=== PATIENT | female | born 1940 | race African-American/Black ===

== ENCOUNTER 2016-08-01 16:16 | Observation (INO) | payer MEDICARE, OTHER ==
[2016-08-01 20:05] LABS: APPEARANCE,URINE CLEAR; BILIRUBIN,URINE NEGATIVE (NEGATIVE); GLUCOSE, URINE NEGATIVE (NEGATIVE); KETONES,URINE NEGATIVE (NEGATIVE); LEUKOCYTE ESTERASE,URINE NEGATIVE (NEGATIVE); NITRITE,URINE NEGATIVE (NEGATIVE); PROTEIN,URINE NEGATIVE (NEGATIVE); URINE SPECIFIC GRAVITY 1.032; UROBILINOGEN,URINE NEGATIVE mg/dL (<2.0)
[2016-08-01 22:47] LABS: ABSOLUTE BASOPHILS # (AUTO) 0.1 10^3/uL (0.0-0.2); ABSOLUTE EOSINOPHILS # (AUTO) 0.4 10^3/uL (0.0-0.6); ABSOLUTE LYMPHOCYTES (AUTO) 3.5 10^3/uL (0.5-4.7); ABSOLUTE NEUT (AUTO) 5.8 10^3/uL (1.7-8.2); BASOPHILS % (AUTO) 1.2 % (0-2); EOSINOPHILS % (AUTO) 3.4 % (0-6); HEMATOCRIT 37.3 % (36.0-47.0); HEMOGLOBIN 12.7 g/dL (12.0-15.5); HGB HCT DIFFERENCE 0.8; LYMPHOCYTES % (AUTO) 32.5 % (13-45); MEAN CORPUSCULAR HEMOGLOBIN 32.2 pg (27.0-33.4); MEAN CORPUSCULAR HGB CONC 34.1 g/dL (32.0-36.0); MEAN CORPUSCULAR VOLUME 95 fl (80-97); MONOCYTES % (AUTO) 9.7 % (3-13); RED BLOOD COUNT 3.94 10^6/uL (3.72-5.28); RED CELL DISTRIBUTION WIDTH 13.5 % (11.5-14.0); SEGMENTED NEUTROPHILS % (AUTO) 53.2 % (42-78); WHITE BLOOD COUNT 10.8 10^3/uL (4.0-10.5)
[2016-08-01 23:03] LABS: ALANINE AMINOTRANSFERASE 29 U/L (9-52); ALBUMIN 4.7 g/dL (3.5-5.0); ALKALINE PHOSPHATASE 76 U/L (38-126); ANION GAP 14 (5-19); ASPARTATE AMINO TRANSFERASE 31 U/L (14-36); BILIRUBIN,DIRECT 0.2 mg/dL (0.0-0.4); BILIRUBIN,TOTAL 0.5 mg/dL (0.2-1.3); BLOOD UREA NITROGEN 21 mg/dL (7-20); CALCIUM 10.5 mg/dL (8.4-10.2); CARBON DIOXIDE 29 mmol/L (22-30); CHLORIDE 101 mmol/L (98-107); CREATININE RESULT 0.97 mg/dL (0.52-1.25); GLUCOSE 105 mg/dL (75-110); POTASSIUM 3.3 mmol/L (3.6-5.0); SODIUM 143.7 mmol/L (137-145); TOTAL PROTEIN 7.2 g/dL (6.3-8.2)
[2016-08-01] MEDS ORDERED: (PENDING PHARMACY ID) (Clonazepam [Klonopin] 0.5 MG) PO PRN (23:26)
[2016-08-01] MEDS ORDERED: CLONAZEPAM 1 MG TABLET PO PRN (23:46)
[2016-08-02] MEDS ORDERED: ACETAMINOPHEN 325 MG TABLET PO PRN (00:15)
[2016-08-02] MEDS: LANSOPRAZOLE 30 MG TAB.RAP.DR PO SCH (06:58)
[2016-08-02] MEDS ORDERED: DONEPEZIL HCL PO SCH ×2 (08:00→10:00)
[2016-08-02] MEDS ORDERED: [UNRECOGNIZED DRUG - OTHER] PO SCH ×2 (08:00→10:00)
[2016-08-02] MEDS ORDERED: MEMANTINE HCL PO SCH ×2 (08:00→10:00)
[2016-08-02] MEDS ORDERED: AMLODIPINE PO SCH (10:00)
[2016-08-02] MEDS ORDERED: (PENDING PHARMACY ID) (Rosuvastatin Calcium [Crestor 5 Mg Tablet] 5 MG) PO SCH (10:00)
[2016-08-02] MEDS ORDERED: FOLIC ACID 1 MG TABLET PO SCH (10:00)
[2016-08-02] MEDS ORDERED: [UNRECOGNIZED DRUG - OTHER] PO SCH (10:00)
[2016-08-02] MEDS ORDERED: CLOPIDOGREL BISULFATE 75 MG TABLET PO SCH (10:00)
[2016-08-02] MEDS ORDERED: VALSARTAN 160 MG TABLET PO SCH (10:00)
[2016-08-02] MEDS ORDERED: VALSARTAN PO SCH (10:00)
[2016-08-02] MEDS ORDERED: SITAGLIPTIN PHOSPHATE 50 MG TABLET PO SCH (10:00)
[2016-08-02] MEDS ORDERED: HCTHIAZID PO SCH (10:00)
[2016-08-02] MEDS ORDERED: HYDROCHLOROTHIAZIDE 25 MG TABLET PO SCH (10:00)
[2016-08-02] MEDS ORDERED: ENOXAPARIN SODIUM INJ 40 MG/0.4 ML DISP.SYRIN SUBCUT SCH (10:00)
[2016-08-02] MEDS ORDERED: (PENDING PHARMACY ID) (Linagliptin [Tradjenta] 5 MG) PO SCH (10:00)
[2016-08-02] MEDS ORDERED: (PENDING PHARMACY ID) (Calcium Carbonate/Vitamin D3 [Calcium 500-Vit D3 200 Caplet] 1 TAB) PO SCH (10:00)
[2016-08-02] MEDS ORDERED: AMLODIPINE BESYLATE 10 MG TABLET PO SCH (10:00)
[2016-08-02] MEDS ORDERED: MEMANTINE HCL 10 MG TABLET PO SCH (10:00)
[2016-08-02] MEDS: PAROXETINE HCL 20 MG TABLET PO SCH ×2 (10:36→17:04)
[2016-08-02] MEDS: CALCIUM CARBONATE 250 MG/VITAMIN D3 125 UNIT TABLET PO SCH ×2 (10:36→17:04)
[2016-08-02 19:19] LABS: ARTERIAL BLOOD BASE EXCESS 6.2 mmol/L; ARTERIAL BLOOD O2 SATURATION 96.4 % (94-98)
--- NOTE | 2016-08-02 21:22 | PDOC H&P ---
History of Present Illness Admission Date/PCP: 08/01/16 17:35 GILBERTO HARTLEY MD History of Present Illness: SALINA BALES is a 75 year old female she came to the office because of shortness of breath and gait abnormality. outpatient CTA chest was done, it was negative for pulmonary embolus, infiltrate, consolidation or mass. Her gait was very unsteady and I was concerned that she may have a stroke ,patient was admitted directly from the office into the hospital for evaluation and evaluation of her symptoms. MRI of the head was done, it was negative for any acute stroke, there was no cerebellar lesion. Past Medical History Cardiac Medical History: Reports: Hypertension Pulmonary Medical History: Reports: Chronic Obstructive Pulmonary Disease (COPD) GI Medical History: Reports: Gastroesophageal Reflux Disease Past Surgical History Past Surgical History: Reports: Tonsillectomy - T&A Social History Smoking Status: Never Smoker Frequency of Alcohol Use: Rare Hx Recreational Drug Use: No Drugs: None Hx Prescription Drug Abuse: No Family History Family History: Reviewed & Not Pertinent Parental Family History Reviewed: Yes Children Family History Reviewed: Yes Sibling(s) Family History Reviewed.: Yes Medication/Allergy Home Medications: Amlodipine/Valsartan/Hcthiazid [Exforge Hct 10-320-25 mg Tab] 1 tab PO DAILY Calcium Carbonate/Vitamin D3 [Calcium 500-Vit D3 200 Caplet] 1 tab PO BID Clonazepam [Klonopin] 0.5 mg PO DAILYP PRN 08/01/16 Clopidogrel Bisulfate [Plavix 75 mg Tablet] 75 mg PO DAILY 08/01/16 Folic Acid [Folvite 1 mg Tablet] 1 mg PO DAILY 08/01/16 Linagliptin [Tradjenta] 5 mg PO DAILY 08/01/16 Memantine HCl/Donepezil HCl [Namzaric 14 mg-10 mg Capsule] 1 cap PO DAILY Pantoprazole Sodium [Protonix] 40 mg PO DAILY 08/01/16 Paroxetine HCl [Paxil 20 mg Tablet] 20 mg PO BID 08/01/16 Rosuvastatin Calcium [Crestor 5 mg Tablet] 5 mg PO DAILY 08/01/16 Zolpidem Tartrate [Ambien 5 mg Tablet] 5 mg PO QHS 08/01/16 Allergies/Adverse Reactions: Penicillins Allergy (Unknown, Verified 07/19/13 15:49) Review of Systems Constitutional: ABSENT: chills, fever(s), headache(s), weight gain, weight loss Eyes: ABSENT: visual disturbances Ears: ABSENT: hearing changes Cardiovascular: ABSENT: chest pain, dyspnea on exertion, edema, orthropnea, palpitations Respiratory: PRESENT: dyspnea Gastrointestinal: ABSENT: abdominal pain, constipation, diarrhea, hematemesis, hematochezia, nausea, vomiting Genitourinary: ABSENT: dysuria, hematuria Musculoskeletal: ABSENT: joint swelling Integumentary: ABSENT: rash, wounds Neurological: PRESENT: abnormal gait Psychiatric: ABSENT: anxiety, depression, homidical ideation, suicidal ideation Endocrine: ABSENT: cold intolerance, heat intolerance, menstrual abnormalities, polydipsia, polyuria Hematologic/Lymphatic: ABSENT: easy bleeding, easy bruising, lymphadenopathy Physical Exam Vital Signs: Temp Pulse Resp BP Pulse Ox 98.7 F 79 16 151/60 H 93 08/02/16 20:15 08/02/16 20:15 08/02/16 20:15 08/02/16 20:15 08/02/16 20:15 Intake & Output 08/01/16 08/02/16 08/03/16 06:59 06:59 06:59 Intake Total 400 605 Balance 400 605 Weight 68.6 kg General appearance: PRESENT: no acute distress, well-developed, well-nourished Head exam: PRESENT: atraumatic, normocephalic Eye exam: PRESENT: conjunctiva pink, EOMI, PERRLA Ear exam: PRESENT: normal external ear exam Mouth exam: PRESENT: moist, tongue midline Neck exam: PRESENT: full ROM Respiratory exam: PRESENT: clear to auscultation araceli Cardiovascular exam: PRESENT: RRR, +S1, +S2 Vascular exam: PRESENT: normal capillary refill GI/Abdominal exam: PRESENT: soft Rectal exam: PRESENT: deferred Neurological exam: PRESENT: alert, CN II-XII grossly intact. ABSENT: motor sensory deficit Psychiatric exam: PRESENT: appropriate affect, normal mood Skin exam: ABSENT: cyanosis, rash Results Laboratory Results: 08/01/16 22:39 08/01/16 22:39 08/01/16 08/01/16 08/02/16 22:39 22:39 18:50 WBC 10.8 H RBC 3.94 Hgb 12.7 Hct 37.3 MCV 95 MCH 32.2 MCHC 34.1 RDW 13.5 Plt Count 296 Seg Neutrophils % 53.2 Lymphocytes % 32.5 Monocytes % 9.7 Eosinophils % 3.4 Basophils % 1.2 Absolute Neutrophils 5.8 Absolute Lymphocytes 3.5 Absolute Monocytes 1.0 Absolute Eosinophils 0.4 Absolute Basophils 0.1 Carbonic Acid 1.37 H HCO3/H2CO3 Ratio 22:1 ABG pH 7.45 ABG pCO2 45.4 H ABG pO2 81.4 ABG HCO3 31.0 H ABG O2 Saturation 96.4 ABG Base Excess 6.2 FiO2 ROOM AIR Sodium 143.7 Potassium 3.3 L Chloride 101 Carbon Dioxide 29 Anion Gap 14 BUN 21 H Creatinine 0.97 Est GFR ( Amer) > 60 Est GFR (Non-Af Amer) 56 L Glucose 105 Calcium 10.5 H Total Bilirubin 0.5 AST 31 ALT 29 Alkaline Phosphatase 76 Total Protein 7.2 Albumin 4.7 08/01/16 19:25 Clean Catch Midstream Urine Culture - Final Gram Negative Rods Impressions: Head MRI 08/01/16 00:00 IMPRESSION: Negative for acute or sub-acute infarction. Age-appropriate exam. Assessment & Plan - Diagnosis (1) Abnormality of gait Is this a current diagnosis for this admission?: YesPlan: MRI was negative for stroke, she will be referred to physical therapy. (2) Metabolic alkalosis with respiratory acidosis Is this a current diagnosis for this admission?: Yes
[2016-08-02 21:46] LABS: ANION GAP 12 (5-19); BLOOD UREA NITROGEN 21 mg/dL (7-20); CALCIUM 9.5 mg/dL (8.4-10.2); CARBON DIOXIDE 28 mmol/L (22-30); CHLORIDE 101 mmol/L (98-107); CREATININE RESULT 1.06 mg/dL (0.52-1.25); GLUCOSE 187 mg/dL (75-110); POTASSIUM 3.4 mmol/L (3.6-5.0); SODIUM 141.1 mmol/L (137-145)
[2016-08-02] MEDS ORDERED: ZOLPIDEM TARTRATE 5 MG TABLET PO SCH (22:00)
[2016-08-02] MEDS ORDERED: ATORVASTATIN CALCIUM 10 MG TABLET PO SCH (22:00)
[2016-08-03] MEDS: LANSOPRAZOLE 30 MG TAB.RAP.DR PO SCH (05:06)
[2016-08-03 08:24] VITALS: BP 148/55
--- NOTE | 2016-08-12 13:27 | PDOC DISCHARGE SUMMARY ---
General - Admit/Disc Date/PCP Admission Date/Primary Care Provider: 08/01/16 17:35 GILBERTO HARTLEY MD Discharge Date: 08/03/16 - Discharge Diagnosis (1) Abnormality of gait Is this a current diagnosis for this admission?: Yes (2) Metabolic alkalosis with respiratory acidosis Is this a current diagnosis for this admission?: Yes - Additional Information Discharge Activity: Activity As Tolerated, Balance Activity w/Rest, Energy Conservation Home Medications: Amlodipine/Valsartan/Hcthiazid [Exforge Hct 10-320-25 mg Tab] 1 tab PO DAILY Calcium Carbonate/Vitamin D3 [Calcium 500-Vit D3 200 Caplet] 1 tab PO BID Clonazepam [Klonopin] 0.5 mg PO DAILYP PRN 08/01/16 Clopidogrel Bisulfate [Plavix 75 mg Tablet] 75 mg PO DAILY 08/01/16 Folic Acid [Folvite 1 mg Tablet] 1 mg PO DAILY 08/01/16 Linagliptin [Tradjenta] 5 mg PO DAILY 08/01/16 Memantine HCl/Donepezil HCl [Namzaric 14 mg-10 mg Capsule] 1 cap PO DAILY Pantoprazole Sodium [Protonix] 40 mg PO DAILY 08/01/16 Paroxetine HCl [Paxil 20 mg Tablet] 20 mg PO BID 08/01/16 Rosuvastatin Calcium [Crestor 5 mg Tablet] 5 mg PO DAILY 08/01/16 Zolpidem Tartrate [Ambien 5 mg Tablet] 5 mg PO QHS 08/01/16 Albuterol Sulfate [Proair HFA] 1 puff IH Q4 PRN #1 inhaler 08/02/16 History of Present Illness History of Present Illness: SALINA BALES is a 75 year old female she came to the office because of shortness of breath and gait abnormality. outpatient CTA chest was done, it was negative for pulmonary embolus, infiltrate, consolidation or mass. Her gait was very unsteady and I was concerned that she may have a stroke ,patient was admitted directly from the office into the hospital for evaluation and evaluation of her symptoms. MRI of the head was done, it was negative for any acute stroke, there was no cerebellar lesion. Hospital Course Hospital Course: Patient was admitted because of abnormal gait and concerned that she may have a stroke. MRI brain was done it was negative, she was brought in for observation Physical Exam Vital Signs: Temp Pulse Resp BP Pulse Ox 98.2 F 73 16 148/55 H 91 L 08/03/16 08:20 08/03/16 08:20 08/03/16 08:20 08/03/16 08:20 08/03/16 08:20 General appearance: PRESENT: no acute distress, well-developed, well-nourished Head exam: PRESENT: atraumatic, normocephalic Eye exam: PRESENT: conjunctiva pink, EOMI, PERRLA Ear exam: PRESENT: normal external ear exam Mouth exam: PRESENT: moist, tongue midline Neck exam: PRESENT: full ROM Respiratory exam: PRESENT: clear to auscultation araceli Cardiovascular exam: PRESENT: +S1, +S2 GI/Abdominal exam: PRESENT: soft Rectal exam: PRESENT: deferred Neurological exam: PRESENT: alert, awake, oriented to person, oriented to place , oriented to time, oriented to situation, CN II-XII grossly intact. ABSENT: motor sensory deficit Skin exam: ABSENT: cyanosis, rash Results Laboratory Results: 08/01/16 22:39 08/02/16 21:20 Impressions: Head MRI 08/01/16 00:00 IMPRESSION: Negative for acute or sub-acute infarction. Age-appropriate exam.
== END 2016-08-03 09:09 | disposition home health service (06) ==
LOC: ER 16:16 → EH 17:35 → 3W 20:03
PROVIDERS: ADMIT Internal Medicine; ATTEND Internal Medicine
DX: R26.81 Unsteadiness on feet (principal); E87.4 Mixed disorder of acid-base balance; R06.00 Dyspnea, unspecified; G31.84 Mild cognitive impairment of uncertain or unknown etiology; I12.9 Hypertensive chronic kidney disease with stage 1 through stage 4 chronic kidney disease, or unspecified chronic kidney disease; N18.3 Chronic kidney disease, stage 3 (moderate); M19.90 Unspecified osteoarthritis, unspecified site; E78.5 Hyperlipidemia, unspecified; Z79.84 Long term (current) use of oral hypoglycemic drugs; Z79.02 Long term (current) use of antithrombotics/antiplatelets; Z79.899 Other long term (current) drug therapy; Z86.73 Personal history of transient ischemic attack (TIA), and cerebral infarction without residual deficits; Z90.49 Acquired absence of other specified parts of digestive tract; Z95.5 Presence of coronary angioplasty implant and graft; Z98.890 Other specified postprocedural states
CPT/HCPCS: 36415 ×2; 87086; 82803; 85025; 80076; 80048 ×2; 81001; 82565; 70551; 71275; 97162; 97167; G0378 ×2; G0379; A9270 ×11; J1650; G8978; G8979; G8980; G8987; G8988; G8989

== ENCOUNTER → 2016-08-01 | Outpatient (CLI) | payer MEDICARE, OTHER | LOC: RAD 12:45 | PROVIDERS: ATTEND Internal Medicine | DX: R06.02 Shortness of breath (principal); M47.894 Other spondylosis, thoracic region | CPT/HCPCS: 71275; 82565 ==

== ENCOUNTER 2016-08-19 11:26 | Observation (INO) | payer MEDICARE, OTHER ==
[2016-08-19] MEDS ORDERED: ALBUTEROL SULFATE 0.083% NEB 2.5 MG/3 ML AMPUL NEB ONE (11:32)
[2016-08-19] MEDS ORDERED: METHYLPREDNISOLONE INJ 125 MG/2 ML SDV IV ONE (11:32)
--- NOTE | 2016-08-19 11:33 | ER Document Report ---
ED Respiratory Problem - General Stated Complaint: SHORTNESS OF BREATH Time Seen by Provider: 08/19/16 11:32 Mode of Arrival: Medic Information source: Patient TRAVEL OUTSIDE OF THE [place] IN LAST 30 DAYS: No - HPI Patient complains to provider of: Cough, Short of breath Onset: This morning Duration: Continuous Quality of pain: No pain Context: Hx COPD Short of Breath: Mild Chest pain/discomfort: Tightness Cough: Productive Sputum amount: Small Sputum color: Yellow Sputum consistency: Mucoid Associated symptoms: Congestion, Cough, Short of breath Similar symptoms previously: Yes Recently seen / treated by doctor: Yes Notes: 75-year-old female who presents to the emergency room complaining of shortness of breath with difficulty breathing that started this morning, she reports a cough that is productive of a small amount of yellowish phlegm, no fever, no chest pain, she does report night sweats, she did not receive any medications in route via EMS, however her symptoms improved in route, with stable vital signs as well, was recently admitted to this facility for symptoms that were consistent with a CVA which have completely resolved as well - Related Data Allergies/Adverse Reactions: Penicillins Allergy (Unknown, Verified 10/02/12 15:49) Home Medications: Current Home Medications Albuterol Sulfate [Proair HFA] 1 puff IH Q4 PRN 08/19/16 [History] Amlodipine/Valsartan/Hcthiazid [Exforge Hct 10-320-25 mg Tab] 1 tab PO DAILY 07/31 [History] Calcium Carbonate/Vitamin D3 [Calcium 500 + Vit D 200 Caplet] 1 tab PO BID 08/19 [History] Clonazepam [Klonopin] 0.5 mg PO DAILYP PRN 08/19/16 [History] Clopidogrel Bisulfate [Plavix 75 mg Tablet] 75 mg PO DAILY 08/19/16 [History] Folic Acid [Folvite 1 mg Tablet] 1 mg PO DAILY 08/19/16 [History] Linagliptin [Tradjenta] 5 mg PO DAILY 08/19/16 [History] Memantine HCl/Donepezil HCl [Namzaric 14 mg-10 mg Capsule] 1 cap PO DAILY [History] Pantoprazole Sodium [Protonix] 40 mg PO DAILY 08/19/16 [History] Paroxetine HCl [Paxil] 20 mg PO DAILY 08/19/16 [History] Rosuvastatin Calcium [Crestor 5 mg Tablet] 5 mg PO QHS 08/19/16 [History] Zolpidem Tartrate [Ambien 5 mg Tablet] 5 mg PO QHS 08/19/16 [History] Past Medical History - General Information source: Patient - Social History Smoking Status: Unknown if Ever Smoked Family History: Reviewed & Not Pertinent - Past Medical History Cardiac Medical History: Reports: Hx Hypertension Pulmonary Medical History: Reports: Hx COPD Denies: Hx Tuberculosis Neurological Medical History: Reports: Hx Cerebrovascular Accident - 2007 GI Medical History: Reports: Hx Gastroesophageal Reflux Disease, Hx Ulcer - stomach Psychiatric Medical History: Denies: Hx Depression - mood disorder Past Surgical History: Reports: Hx Cardiac Surgery - 2 or 3 angioplasty can not remember, Hx Tonsillectomy - T&A - Immunizations Immunizations up to date: Yes Hx Diphtheria, Pertussis, Tetanus Vaccination: Yes Hx Pneumococcal Vaccination: 03/17/09 Review of Systems - Review of Systems Constitutional: No symptoms reported EENT: No symptoms reported Cardiovascular: No symptoms reported Respiratory: See HPI Gastrointestinal: No symptoms reported Genitourinary: No symptoms reported Female Genitourinary: No symptoms reported Musculoskeletal: No symptoms reported Skin: No symptoms reported Hematologic/Lymphatic: No symptoms reported Neurological/Psychological: No symptoms reported -: Yes All other systems reviewed and negative Physical Exam - Vital signs Vitals: Temp Pulse Resp BP Pulse Ox 98.7 F 78 18 126/63 H 98 08/19/16 11:30 08/19/16 11:30 08/19/16 11:30 08/19/16 11:30 08/19/16 11:30 Interpretation: Normal - General General appearance: Appears well, Alert - HEENT Head: Normocephalic, Atraumatic Eyes: Normal Pupils: PERRL - Respiratory Respiratory status: No respiratory distress Chest status: Nontender Breath sounds: Normal Chest palpation: Normal - Cardiovascular Rhythm: Regular Heart sounds: Normal auscultation Murmur: No - Abdominal Inspection: Normal Distension: No distension Bowel sounds: Normal Tenderness: Nontender Organomegaly: No organomegaly - Back Back: Normal, Nontender - Extremities General upper extremity: Normal inspection, Nontender, Normal color, Normal ROM , Normal temperature General lower extremity: Normal inspection, Nontender, Normal color, Normal ROM , Normal temperature, Normal weight bearing. No: Cynthia's sign - Neurological Neuro grossly intact: Yes Cognition: Normal Orientation: AAOx4 Turner Coma Scale Eye Opening: Spontaneous Gilchrist Coma Scale Verbal: Oriented Gilchrist Coma Scale Motor: Obeys Commands Turner Coma Scale Total: 15 Speech: Normal Motor strength normal: LUE, RUE, LLE, RLE Sensory: Normal - Psychological Associated symptoms: Normal affect, Normal mood - Skin Skin Temperature: Warm Skin Moisture: Dry Skin Color: Normal Course - Re-evaluation Re-evalutation: 08/19/16 11:36 Sounds are clear to auscultation, when distracted patient speaks in full sentences and does not appear to have any respiratory distress, at times she speaks in 1-2 word sentences and takes pauses in between for breathing when she is being questioned directly about her condition 08/19/16 17:03 requested set up operator to mis Varela 08/19/16 18:[address] Varela who will admit for further evaluation and treatment - Vital Signs Vital signs: Temp Pulse Resp BP Pulse Ox 98.7 F 78 17 137/64 H 95 08/19/16 11:30 08/19/16 11:30 08/19/16 16:00 08/19/16 16:00 08/19/16 16:00 - Laboratory Result Diagrams: 08/19/16 12:07 08/19/16 12:07 Laboratory results interpreted by ar: 08/19/16 08/19/16 12:07 13:31 VBG pH 7.46 H BUN 21 H Est GFR (Non-Af Amer) 53 L Glucose 162 H AST 39 H - EKG Interpretation by Mt EKG shows normal: Sinus rhythm Rate: Normal Rhythm: NSR - Transfer of Care Care transferred to following provider: Dr Varela Discharge - Discharge Clinical Impression: Chest pain Qualifiers: Chest pain type: unspecified Qualified Code(s): R07.9 - Chest pain, unspecified Condition: Stable Disposition: ADMITTED OBSERVATION Admitting Provider: Nichole Unit Admitted: Telemetry
[2016-08-19 12:19] LABS: ABSOLUTE EOSINOPHILS # (AUTO) 0.2 10^3/uL (0.0-0.6); ABSOLUTE LYMPHOCYTES (AUTO) 2.9 10^3/uL (0.5-4.7); ABSOLUTE MONOCYTES (AUTO) 0.6 10^3/uL (0.1-1.4); ABSOLUTE NEUT (AUTO) 6.2 10^3/uL (1.7-8.2); BASOPHILS % (AUTO) 0.5 % (0-2); EOSINOPHILS % (AUTO) 2.5 % (0-6); HEMATOCRIT 37.8 % (36.0-47.0); HEMOGLOBIN 12.6 g/dL (12.0-15.5); LYMPHOCYTES % (AUTO) 28.9 % (13-45); MEAN CORPUSCULAR HEMOGLOBIN 31.9 pg (27.0-33.4); MEAN CORPUSCULAR HGB CONC 33.3 g/dL (32.0-36.0); MEAN CORPUSCULAR VOLUME 96 fl (80-97); MONOCYTES % (AUTO) 5.9 % (3-13); RED BLOOD COUNT 3.94 10^6/uL (3.72-5.28); RED CELL DISTRIBUTION WIDTH 13.4 % (11.5-14.0); SEGMENTED NEUTROPHILS % (AUTO) 62.2 % (42-78)
[2016-08-19 12:42] LABS: ALANINE AMINOTRANSFERASE 25 U/L (9-52); ALBUMIN 4.6 g/dL (3.5-5.0); ALKALINE PHOSPHATASE 88 U/L (38-126); ANION GAP 12 (5-19); ASPARTATE AMINO TRANSFERASE 39 U/L (14-36); BILIRUBIN,DIRECT 0.4 mg/dL (0.0-0.4); BILIRUBIN,TOTAL 0.7 mg/dL (0.2-1.3); BLOOD UREA NITROGEN 21 mg/dL (7-20); CARBON DIOXIDE 29 mmol/L (22-30); CHLORIDE 103 mmol/L (98-107); CREATINE KINASE 92 U/L (30-135); CREATININE RESULT 1.01 mg/dL (0.52-1.25); GLUCOSE 162 mg/dL (75-110); POTASSIUM 3.6 mmol/L (3.6-5.0); SODIUM 144.2 mmol/L (137-145); TOTAL PROTEIN 8.1 g/dL (6.3-8.2)
[2016-08-19 12:54] LABS: CREATINE KINASE MB 1.02 ng/mL (<4.55)
[2016-08-19 13:01] LABS: TROPONIN I 0.071 ng/mL
--- NOTE | 2016-08-19 13:17 | RADIOLOGY REPORT (SQ) ---
EXAM DESCRIPTION: CHEST PA/LAT COMPLETED DATE/TIME: 08/19/2016 1:00 pm REASON FOR STUDY: db COMPARISON: 10/02/2012 EXAM PARAMETERS: NUMBER OF VIEWS: two views TECHNIQUE: Digital Frontal and Lateral radiographic views of the chest acquired. RADIATION DOSE: NA LIMITATIONS: none FINDINGS: LUNGS AND PLEURA: No opacities, masses or pneumothorax. No pleural effusion. MEDIASTINUM AND HILAR STRUCTURES: No masses or contour abnormalities. HEART AND VASCULAR STRUCTURES: Heart normal size. No evidence for failure. BONES: No acute findings. HARDWARE: None in the chest. OTHER: No other significant finding. IMPRESSION: NO SIGNIFICANT RADIOGRAPHIC FINDING IN THE CHEST. TECHNICAL DOCUMENTATION: JOB ID: [id number] [employer]- All Rights Reserved
[2016-08-19 13:43] LABS: VENOUS BLOOD BASE EXCESS 3.9 mmol/L; VENOUS BLOOD HCO3 27.9 mmol/L (20-32); VENOUS BLOOD PCO2 40.1 mmHg (35-63); VENOUS BLOOD PH 7.46 (7.30-7.42)
--- NOTE | 2016-08-19 14:24 | EKG REPORT ---
SEVERITY:- ABNORMAL ECG - SINUS RHYTHM LEFT AXIS DEVIATION ABNRM R PROG, CONSIDER ASMI OR LEAD PLACEMENT BORDERLINE T ABNORMALITIES, DIFFUSE LEADS PROLONGED QT INTERVAL : Confirmed by: Alison Gottlieb 19-Aug-2016 14:24:18
[2016-08-19 14:37] LABS: APPEARANCE,URINE CLEAR; BILIRUBIN,URINE NEGATIVE (NEGATIVE); GLUCOSE, URINE NEGATIVE (NEGATIVE); KETONES,URINE NEGATIVE (NEGATIVE); LEUKOCYTE ESTERASE,URINE NEGATIVE (NEGATIVE); NITRITE,URINE NEGATIVE (NEGATIVE); PROTEIN,URINE NEGATIVE (NEGATIVE); URINE SPECIFIC GRAVITY 1.012; UROBILINOGEN,URINE NEGATIVE mg/dL (<2.0)
[2016-08-19 16:53] LABS: CREATINE KINASE MB 1.1 ng/mL (<4.55); TROPONIN I 0.073 ng/mL
[2016-08-19] MEDS ORDERED: ACETAMINOPHEN 325 MG TABLET PO PRN (21:20)
[2016-08-19] MEDS ORDERED: INSULIN LISPRO 100 UNIT/ML 3 ML VIAL SUBCUT PRN (21:22)
[2016-08-19] MEDS ORDERED: DEXTROSE 50%-WATER SYRINGE 12.5 GM/25 ML DOSE IV PRN (21:22)
[2016-08-19] MEDS ORDERED: DEXTROSE 50%-WATER SYRINGE 25 GM/50 ML DOSE IV PRN (21:22)
[2016-08-19] MEDS ORDERED: DEXTROSE 40% GEL 15 GM TUBE X 2 PO PRN (21:22)
[2016-08-19] MEDS ORDERED: DEXTROSE 40% GEL 15 GM TUBE PO PRN (21:22)
[2016-08-19] MEDS ORDERED: GLUCAGON,HUMAN RECOMB 1 MG INJ IM PRN (21:22)
[2016-08-19] MEDS ORDERED: CLONAZEPAM 1 MG TABLET PO PRN (21:45)
[2016-08-19] MEDS ORDERED: (PENDING PHARMACY ID) (Rosuvastatin Calcium [Crestor 5 Mg Tablet] 5 MG) PO SCH (22:00)
[2016-08-19] MEDS: ATORVASTATIN CALCIUM 10 MG TABLET PO SCH (22:10)
[2016-08-19] MEDS: CALCIUM CARBONATE 250 MG/VITAMIN D3 125 UNIT TABLET PO SCH (22:10)
[2016-08-19] MEDS: ZOLPIDEM TARTRATE 5 MG TABLET PO SCH (22:10)
[2016-08-20] MEDS: ALBUTEROL SULFATE HFA (90 MCG/PUFF) 200 PUFF/8.5 GM MDI IH PRN ×3 (00:10→21:27)
[2016-08-20 01:00] LABS: CREATINE KINASE MB 1.01 ng/mL (<4.55); TROPONIN I 0.059 ng/mL
[2016-08-20 09:23] LABS: ABSOLUTE BASOPHILS # (AUTO) 0.1 10^3/uL (0.0-0.2); ABSOLUTE LYMPHOCYTES (AUTO) 1.3 10^3/uL (0.5-4.7); ABSOLUTE MONOCYTES (AUTO) 0.4 10^3/uL (0.1-1.4); ABSOLUTE NEUT (AUTO) 11.8 10^3/uL (1.7-8.2); BASOPHILS % (AUTO) 0.6 % (0-2); HEMATOCRIT 34.9 % (36.0-47.0); HEMOGLOBIN 11.3 g/dL (12.0-15.5); LYMPHOCYTES % (AUTO) 9.8 % (13-45); MEAN CORPUSCULAR HEMOGLOBIN 31.4 pg (27.0-33.4); MEAN CORPUSCULAR HGB CONC 32.4 g/dL (32.0-36.0); MEAN CORPUSCULAR VOLUME 97 fl (80-97); MONOCYTES % (AUTO) 2.9 % (3-13); RED BLOOD COUNT 3.61 10^6/uL (3.72-5.28); RED CELL DISTRIBUTION WIDTH 13.6 % (11.5-14.0); SEGMENTED NEUTROPHILS % (AUTO) 86.7 % (42-78); WHITE BLOOD COUNT 13.6 10^3/uL (4.0-10.5)
[2016-08-20 09:42] LABS: ANION GAP 16 (5-19); BLOOD UREA NITROGEN 28 mg/dL (7-20); CALCIUM 9.7 mg/dL (8.4-10.2); CARBON DIOXIDE 25 mmol/L (22-30); CHLORIDE 101 mmol/L (98-107); CREATINE KINASE 78 U/L (30-135); GLUCOSE 278 mg/dL (75-110); POTASSIUM 3.8 mmol/L (3.6-5.0); SODIUM 141.5 mmol/L (137-145)
[2016-08-20 09:51] LABS: CREATINE KINASE MB 1.2 ng/mL (<4.55); TROPONIN I 0.056 ng/mL
[2016-08-20] MEDS ORDERED: MEMANTINE HCL PO SCH (10:00)
[2016-08-20] MEDS ORDERED: [UNRECOGNIZED DRUG - OTHER] PO SCH (10:00)
[2016-08-20] MEDS ORDERED: (PENDING PHARMACY ID) (Calcium Carbonate/Vitamin D3 [Calcium 500-Vit D3 200 Caplet] 1 TAB) PO SCH (10:00)
[2016-08-20] MEDS ORDERED: HCTHIAZID PO SCH (10:00)
[2016-08-20] MEDS ORDERED: DONEPEZIL HCL PO SCH (10:00)
[2016-08-20] MEDS ORDERED: (PENDING PHARMACY ID) (Linagliptin [Tradjenta] 5 MG) PO SCH (10:00)
[2016-08-20] MEDS ORDERED: AMLODIPINE PO SCH (10:00)
[2016-08-20] MEDS ORDERED: [UNRECOGNIZED DRUG - OTHER] PO SCH (10:00)
[2016-08-20] MEDS ORDERED: VALSARTAN PO SCH (10:00)
[2016-08-20] MEDS: HYDROCHLOROTHIAZIDE 25 MG TABLET PO SCH (10:10)
[2016-08-20] MEDS: CLOPIDOGREL BISULFATE 75 MG TABLET PO SCH (10:15)
[2016-08-20] MEDS: SITAGLIPTIN PHOSPHATE 50 MG TABLET PO SCH (10:15)
[2016-08-20] MEDS: AMLODIPINE BESYLATE 10 MG TABLET PO SCH (10:17)
[2016-08-20] MEDS: CALCIUM CARBONATE 250 MG/VITAMIN D3 125 UNIT TABLET PO SCH ×2 (10:17→21:28)
[2016-08-20] MEDS: PAROXETINE HCL 20 MG TABLET PO SCH (10:18)
[2016-08-20] MEDS: FOLIC ACID 1 MG TABLET PO SCH (10:18)
[2016-08-20] MEDS: LANSOPRAZOLE 30 MG TAB.RAP.DR PO SCH (10:18)
[2016-08-20] MEDS: VALSARTAN 160 MG TABLET PO SCH (10:19)
[2016-08-20 16:57] LABS: CREATINE KINASE MB 1.32 ng/mL (<4.55); TROPONIN I 0.047 ng/mL
--- NOTE | 2016-08-20 20:16 | PDOC H&P ---
History of Present Illness Admission Date/PCP: 08/19/16 20:07 GILBERTO HARTLEY MD History of Present Illness: SALINA BALES is a 75 year old female, she came to the emergency room because of shortness of breath and chest pain. She has shortness of breath for the last many months, she said the symptom started after she had upper respiratory symptoms that was felt to be due to viral back in the winter season. She was seen at [facility] for evaluation of the symptoms, she has had pulmonary function test including spirometry, lung volume and DLCO. I Reviewed records from the [facility] she apparently had pharmacological spect myocardial perfusion study done on July 15, 2016, it demonstrated a medium-sized severity apical septa and mid anteroseptal defect with no improvement at rest consistent with nontransmural infarct. Basically it seems that she had abnormal stress test, could that be the cause of her shortness of breath?. Echocardiogram was done on this admission, it demonstrated normal ejection fraction of left ventricle, the left ventricle was grossly normal size, there is borderline concentric left ventricular hypertrophy the right ventricular systolic function is normal. There is no mitral valve stenosis, there is no aortic valve stenosis , there is no aortic valve regurgitation Past Medical History Cardiac Medical History: Reports: Hypertension Endocrine Medical History: Reports: Diabetes Mellitus Type 2 GI Medical History: Reports: Gastroesophageal Reflux Disease Psychiatric Medical History: Reports: Dementia Past Surgical History Past Surgical History: Reports: Tonsillectomy - T&A Social History Smoking Status: Never Smoker Frequency of Alcohol Use: Rare Hx Recreational Drug Use: No Drugs: None Hx Prescription Drug Abuse: No Family History Family History: Reviewed & Not Pertinent Parental Family History Reviewed: Yes Children Family History Reviewed: Yes Sibling(s) Family History Reviewed.: Yes Medication/Allergy Home Medications: Albuterol Sulfate [Proair HFA] 1 puff IH Q4 PRN 08/19/16 Amlodipine/Valsartan/Hcthiazid [Exforge Hct 10-320-25 mg Tab] 1 tab PO DAILY 07/31 Calcium Carbonate/Vitamin D3 [Calcium 500 + Vit D 200 Caplet] 1 tab PO BID 08/19 Clonazepam [Klonopin] 0.5 mg PO DAILYP PRN 08/19/16 Clopidogrel Bisulfate [Plavix 75 mg Tablet] 75 mg PO DAILY 08/19/16 Folic Acid [Folvite 1 mg Tablet] 1 mg PO DAILY 08/19/16 Linagliptin [Tradjenta] 5 mg PO DAILY 08/19/16 Memantine HCl/Donepezil HCl [Namzaric 14 mg-10 mg Capsule] 1 cap PO DAILY Pantoprazole Sodium [Protonix] 40 mg PO DAILY 08/19/16 Paroxetine HCl [Paxil] 20 mg PO DAILY 08/19/16 Rosuvastatin Calcium [Crestor 5 mg Tablet] 5 mg PO QHS 08/19/16 Zolpidem Tartrate [Ambien 5 mg Tablet] 5 mg PO QHS 08/19/16 Allergies/Adverse Reactions: Penicillins Allergy (Unknown, Verified 10/02/12 15:49) Review of Systems Constitutional: ABSENT: chills, fever(s), headache(s), weight gain, weight loss Eyes: ABSENT: visual disturbances Ears: ABSENT: hearing changes Cardiovascular: PRESENT: chest pain, dyspnea on exertion Respiratory: ABSENT: cough, hemoptysis Gastrointestinal: ABSENT: abdominal pain, constipation, diarrhea, hematemesis, hematochezia, nausea, vomiting Genitourinary: ABSENT: dysuria, hematuria Musculoskeletal: ABSENT: joint swelling Integumentary: ABSENT: rash, wounds Neurological: ABSENT: abnormal gait, abnormal speech, confusion, dizziness, focal weakness, syncope Psychiatric: ABSENT: anxiety, depression, homidical ideation, suicidal ideation Endocrine: ABSENT: cold intolerance, heat intolerance, menstrual abnormalities, polydipsia, polyuria Hematologic/Lymphatic: ABSENT: easy bleeding, easy bruising, lymphadenopathy Physical Exam Vital Signs: Temp Pulse Resp BP Pulse Ox 98.2 F 86 14 137/56 H 95 08/20/16 16:00 08/20/16 16:00 08/20/16 16:00 08/20/16 16:00 08/20/16 16:00 Intake & Output 08/19/16 08/20/16 08/21/16 06:59 06:59 06:59 Intake Total 300 540 Balance 300 540 Weight 66.6 kg General appearance: PRESENT: no acute distress, well-developed, well-nourished Head exam: PRESENT: atraumatic, normocephalic Eye exam: PRESENT: conjunctiva pink, EOMI, PERRLA Ear exam: PRESENT: normal external ear exam Mouth exam: PRESENT: moist, tongue midline Neck exam: PRESENT: full ROM Respiratory exam: PRESENT: clear to auscultation araceli Cardiovascular exam: PRESENT: RRR, +S1, +S2 Pulses: PRESENT: normal dorsalis pedis pul, +2 pedal pulses bilateral Vascular exam: PRESENT: normal capillary refill GI/Abdominal exam: PRESENT: normal bowel sounds, soft Rectal exam: PRESENT: deferred Neurological exam: PRESENT: alert, awake, oriented to person, oriented to place , oriented to time, oriented to situation, CN II-XII grossly intact. ABSENT: motor sensory deficit Psychiatric exam: PRESENT: appropriate affect, normal mood. ABSENT: homicidal ideation, suicidal ideation Skin exam: PRESENT: dry, intact, warm. ABSENT: cyanosis, rash Results Laboratory Results: 08/20/16 09:08 08/20/16 09:08 08/20/16 08/20/16 09:08 09:08 WBC 13.6 H RBC 3.61 L Hgb 11.3 L Hct 34.9 L MCV 97 MCH 31.4 MCHC 32.4 RDW 13.6 Plt Count 338 Seg Neutrophils % 86.7 H Lymphocytes % 9.8 L Monocytes % 2.9 L Eosinophils % 0.0 Basophils % 0.6 Absolute Neutrophils 11.8 H Absolute Lymphocytes 1.3 Absolute Monocytes 0.4 Absolute Eosinophils 0.0 Absolute Basophils 0.1 Sodium 141.5 Potassium 3.8 Chloride 101 Carbon Dioxide 25 Anion Gap 16 BUN 28 H Creatinine 1.10 Est GFR ( Amer) 59 L Est GFR (Non-Af Amer) 48 L Glucose 278 H Calcium 9.7 08/20/16 08/20/16 08/20/16 00:17 00:17 09:08 Creatine Kinase 69 78 CK-MB (CK-2) 1.01 Troponin I 0.059 08/20/16 08/20/16 08/20/16 09:08 16:18 16:18 Creatine Kinase 106 CK-MB (CK-2) 1.20 1.32 Troponin I 0.056 0.047 Impressions: Chest X-Ray 08/19/16 11:32 IMPRESSION: NO SIGNIFICANT RADIOGRAPHIC FINDING IN THE CHEST. Assessment & Plan - Diagnosis (1) Chest pain Qualifiers: Chest pain type: unspecified Qualified Code(s): R07.9 - Chest pain, unspecified Is this a current diagnosis for this admission?: YesPlan: Patient was admitted because of chest pain ,shortness of breath 3 sets of cardiac enzymes were negative (2) Shortness of breath Is this a current diagnosis for this admission?: Yes (3) Type 2 diabetes mellitus Qualifiers: Diabetes mellitus complication status: without complication Diabetes mellitus nursing home insulin use: without nursing home use Qualified Code(s): E11.9 - Type 2 diabetes mellitus without complications Is this a current diagnosis for this admission?: Yes
[2016-08-20] MEDS: ATORVASTATIN CALCIUM 10 MG TABLET PO SCH (21:27)
[2016-08-20] MEDS: ZOLPIDEM TARTRATE 5 MG TABLET PO SCH (21:27)
--- NOTE | 2016-08-21 09:23 | XCELERA REPORT ---
[address] [address] Transthoracic Echocardiogram Report Name: SALINA BALES Age: 75 yrs Gender: Female : 1940 Patient Status: Inpatient Patient Location: 5\S\530\S\A Study Date: 08/20/2016 09:11 AM Height: 67 in Weight: 146 lb BSA: 1.8 m2 Procedure: A complete two-dimensional transthoracic echocardiogram was performed (2D, M-mode, spectral and color flow Doppler). The study was technically adequate with some images being suboptimal in quality. Reason For Study: CHEST PAIN Ordering Physician: GILBERTO HARTLEY Performed By: Latanya Vicente Interpretation Summary The left ventricular ejection fraction is normal. Doppler measurements suggest impaired left ventricular relaxation, which is associated with grade I/IV or mild diastolic dysfunction The left ventricle is grossly normal size. There is borderline concentric left ventricular hypertrophy. Wall motion cannot be accurately commented on, but no definite regional wall motion abnormalities noted. The right ventricular systolic function is normal. The right atrium is normal in size The left atrial size is normal. There is no mitral valve stenosis. There is a trace amount of mitral regurgitation There is no aortic valve stenosis No aortic regurgitation is present. There is a trace or physiologic amount of tricuspid regurgitation The aortic root is not well visualized but is probably normal size. The inferior vena cava appeared normal and decreased > 50% with respiration (RAP 5-10 mmHg) There is no pericardial effusion. MMode/2D Measurements \T\ Calculations RVDd: 1.7 cm LVIDd: 4.8 cm FS: 37.7 % Ao root diam: 2.8 cm IVSd: 0.95 cm LVIDs: 3.0 cm EDV(Teich): 105.3 ml LVPWd: 0.72 cmESV(Teich): 34.0 ml Ao root area: 6.3 cm2 EF(Teich): 67.7 % LA dimension: 3.5 cm LVOT diam: 1.9 cm LVOT area: 2.9 cm2 Doppler Measurements \T\ Calculations MV E max yani: MV P1/2t max yani: Ao V2 max: LV V1 max P.7 cm/sec 101.2 cm/sec 171.7 cm/sec 7.0 mmHg MV A max yani: MV P1/2t: 53.9 msec Ao max PG: LV V1 max: 119.0 cm/sec MVA(P1/2t): 4.1 cm2 11.8 mmHg 132.3 cm/sec MV E/A: 0.85 MV dec slope: ABBEY(V,D): 2.2 cm2 549.9 cm/sec2 PA V2 max: TR max yani: 97.7 cm/sec 244.1 cm/sec PA max PG: TR max P.8 mmHg 3.8 mmHg Left Ventricle The left ventricle is grossly normal size. There is borderline concentric left ventricular hypertrophy. The left ventricular ejection fraction is normal. Doppler measurements suggest impaired left ventricular relaxation, which is associated with grade I/IV or mild diastolic dysfunction. Wall motion cannot be accurately commented on, but no definite regional wall motion abnormalities noted. Right Ventricle The right ventricle is grossly normal size. There is normal right ventricular wall thickness. The right ventricular systolic function is normal. Atria The right atrium is normal in size. The left atrial size is normal. Interarterial septum not well visualized and not well dopplered. Cannot comment on ASD/PFO presence. Mitral Valve The mitral valve leaflets are sclerotic, but show no functional abnormalities. There is no mitral valve stenosis. There is a trace amount of mitral regurgitation. Aortic Valve The aortic valve is not well visualized secondary to technical limitations. There is no aortic valve stenosis. No aortic regurgitation is present. Tricuspid Valve The tricuspid valve is not well visualized secondary to technical limitations. There is no tricuspid stenosis. There is a trace or physiologic amount of tricuspid regurgitation. Tricuspid regurgitation jet envelope not well defined to measure RV systolic pressure accurately. Pulmonic Valve The pulmonic valve is not well visualized. Great Vessels The aortic root is not well visualized but is probably normal size. The inferior vena cava appeared normal and decreased > 50% with respiration (RAP 5-10 mmHg). Effusions There is no pericardial effusion. : GILBERTO HARTLEY > Alison Gottlieb
[2016-08-21] MEDS: SITAGLIPTIN PHOSPHATE 50 MG TABLET PO SCH (09:35)
[2016-08-21] MEDS: HYDROCHLOROTHIAZIDE 25 MG TABLET PO SCH (09:36)
[2016-08-21] MEDS: VALSARTAN 160 MG TABLET PO SCH (09:36)
[2016-08-21] MEDS: AMLODIPINE BESYLATE 10 MG TABLET PO SCH (09:36)
[2016-08-21] MEDS: CALCIUM CARBONATE 250 MG/VITAMIN D3 125 UNIT TABLET PO SCH ×2 (09:37→21:46)
[2016-08-21] MEDS: PAROXETINE HCL 20 MG TABLET PO SCH (09:37)
[2016-08-21] MEDS: CLOPIDOGREL BISULFATE 75 MG TABLET PO SCH (09:37)
[2016-08-21] MEDS: FOLIC ACID 1 MG TABLET PO SCH (09:37)
[2016-08-21] MEDS: LANSOPRAZOLE 30 MG TAB.RAP.DR PO SCH (09:37)
--- NOTE | 2016-08-21 12:19 | PDOC CONSULTATION ---
Consultation Consult Date: 08/21/16 Attending physician:: GILBERTO HARTLEY Consult reason:: Chest pain and shortness of breath History of Present Illness Admission Date/PCP: 08/19/16 20:07 GILBERTO HARTLEY MD Patient complains of: Chest pain and shortness of breath History of Present Illness: SALINA BALES is a 75 year old female, she came to the emergency room because of shortness of breath and chest pain. She has shortness of breath for the last many months, she said the symptom started after she had upper respiratory symptoms that was felt to be due to viral back in the winter season. She was seen at [facility] for evaluation of the symptoms, she has had pulmonary function test including spirometry, lung volume and DLCO. I Reviewed records from the [facility] she apparently had pharmacological spect myocardial perfusion study done on July 15, 2016, it demonstrated a medium-sized severity apical septa and mid anteroseptal defect with no improvement at rest consistent with nontransmural infarct. Patient was subsequently admitted. I was asked to evaluate patient because of the above complaints. Her cardiac enzymes have so far been negative. Patient describes 3 previous heart catheterization on approximately 20 years ago which was noted to be negative. Patient not keen on repeating a heart catheterization. Patient does describe history of COPD, anxiety disorder. In addition patient describes difficulty falling asleep, staying asleep. She does give history of snoring. Past Medical History Cardiac Medical History: Reports: Hypertension Pulmonary Medical History: Reports: Chronic Obstructive Pulmonary Disease (COPD) Denies: Tuberculosis GI Medical History: Reports: Gastroesophageal Reflux Disease Psychiatric Medical History: Denies: Depression - mood disorder Past Surgical History Past Surgical History: Reports: Cardiac Catheterization - At least 3 by patient' s record none showing significant disease, Tonsillectomy - T&A Social History Information Source: Patient Smoking Status: Never Smoker Frequency of Alcohol Use: Rare Hx Recreational Drug Use: No Drugs: None Hx Prescription Drug Abuse: No Family History Family History: Reviewed & Not Pertinent Parental Family History Reviewed: Yes Children Family History Reviewed: Yes Sibling(s) Family History Reviewed.: Yes Medication/Allergy Home Medications: Albuterol Sulfate [Proair HFA] 1 puff IH Q4 PRN 08/19/16 Amlodipine/Valsartan/Hcthiazid [Exforge Hct 10-320-25 mg Tab] 1 tab PO DAILY 07/31 Calcium Carbonate/Vitamin D3 [Calcium 500 + Vit D 200 Caplet] 1 tab PO BID 08/19 Clonazepam [Klonopin] 0.5 mg PO DAILYP PRN 08/19/16 Clopidogrel Bisulfate [Plavix 75 mg Tablet] 75 mg PO DAILY 08/19/16 Folic Acid [Folvite 1 mg Tablet] 1 mg PO DAILY 08/19/16 Linagliptin [Tradjenta] 5 mg PO DAILY 08/19/16 Memantine HCl/Donepezil HCl [Namzaric 14 mg-10 mg Capsule] 1 cap PO DAILY Pantoprazole Sodium [Protonix] 40 mg PO DAILY 08/19/16 Paroxetine HCl [Paxil] 20 mg PO DAILY 08/19/16 Rosuvastatin Calcium [Crestor 5 mg Tablet] 5 mg PO QHS 08/19/16 Zolpidem Tartrate [Ambien 5 mg Tablet] 5 mg PO QHS 08/19/16 Allergies/Adverse Reactions: Penicillins Allergy (Unknown, Verified 10/02/12 15:49) Review of Systems Review of Systems: Please see history of present illness and past medical history as wall. Constitutional: No fever or chills reported. Head : No recent chronic headaches, recent head injury. Eyes: No recent eye pain, diplopia, redness, discharge, acute visual changes. Ears: No recent chronic ear pain, acute hearing loss, ear discharge. Oral cavity: No recent ulcerations, bleeding, oral cavity discomfort. Neck: No recent acute neck pain reported. Hematologic: No recent easy bruising or bleeding or hematologic malignancy reported. Lymphatic: No recent lymphatic malignancy, chronic lymphadenopathy reported yet Cardiovascular system review: See history of present illness. Respiratory system review: No recent chronic cough, hemoptysis, blood clots in the lungs reported. Mild Shortness of breath on exertion Gastrointestinal system review: Negative for any recent acute or chronic abdominal pain, hematemesis, melena, recent change in bowel habits. Describes history of reflux Genitourinary system review: No recent acute or chronic hematuria, flank pain, UTI etc. reported. Skin system review: Negative for any recent abnormal bruising, no rash, no pruritus reported. Neurologic: No prior history of strokes, mini strokes, seizure disorder. Psychologic: No history of major psychosis or major depression reported. Patient does describe history of anxiety and stress. Musculoskeletal: Minor aches and pains reported. No acute joint swelling reported. Endocrine: No recent polyuria, polydipsia, recent heat or cold intolerance. Physical Exam Vital Signs: Temp Pulse Resp BP Pulse Ox 98.1 F 73 16 134/66 H 95 08/21/16 07:41 08/21/16 07:41 08/21/16 07:41 08/21/16 07:41 08/21/16 07:41 Intake & Output 08/20/16 08/21/16 08/22/16 06:59 06:59 06:59 Intake Total 300 540 Balance 300 540 Weight 66.6 kg Exam: GENERAL: well-nourished and in no acute distress. Alert and oriented x3 HEAD: Atraumatic, normocephalic. EYES: Pupils equal round and reactive to light, extraocular movements intact, sclera anicteric, conjunctiva are normal. ENT: TMs normal, nares patent, oropharynx clear without exudates. Moist mucous membranes. No oral ulcerations or bleeding gums noted NECK: supple without lymphadenopathy. Trachea is central. No cervical or axillary lymphadenopathy noted. Carotids are 2+, JVD WNL LUNGS: Respiration seems nonlabored, no significant accessory muscle action noted. Breath sounds clear to auscultation bilaterally and equal noted. No wheezes rales or rhonchi noted. No significant dullness noted on percussion. CHEST: Palpation of the chest wall shows significant chest wall tenderness. No other significant abnormalities noted. 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 ABDOMEN: Soft, no tenderness appreciated, normoactive bowel sounds. No guarding , no rebound. No rigidity noted . No masses appreciated. EXTREMITIES: Pedal pulses are 1-2+, no calf tenderness noted. No clubbing or cyanosis.trace to 1+ pedal edema noted NEUROLOGICAL: Focused neurological exam showed no significant neurologic deficit. Normal speech, no focal weakness appreciated. PSYCH: Normal mood, normal affect. Judgment and insight within normal limits. SKIN: No significant ecchymosis, rash, ulcerations or signs of pruritus noted. MUSCULOSKELETAL EXAM: No significant joint swelling noted. Results Laboratory Results: 08/20/16 09:08 08/20/16 09:08 08/20/16 08/20/16 08/20/16 00:17 00:17 09:08 Creatine Kinase 69 78 CK-MB (CK-2) 1.01 Troponin I 0.059 08/20/16 08/20/16 08/20/16 09:08 16:18 16:18 Creatine Kinase 106 CK-MB (CK-2) 1.20 1.32 Troponin I 0.056 0.047 EKG Comments: Sinus rhythm, minor nonspecific T-wave inversion noted in V1 to V3 Impressions: Chest X-Ray 08/19/16 11:32 IMPRESSION: NO SIGNIFICANT RADIOGRAPHIC FINDING IN THE CHEST. Assessment & Plan - Diagnosis (1) Chest pain Qualifiers: Chest pain type: unspecified Qualified Code(s): R07.9 - Chest pain, unspecified Is this a current diagnosis for this admission?: Yes (2) Shortness of breath Is this a current diagnosis for this admission?: Yes (3) COPD (chronic obstructive pulmonary disease) Qualifiers: COPD type: unspecified COPD Qualified Code(s): J44.9 - Chronic obstructive pulmonary disease, unspecified Is this a current diagnosis for this admission?: Yes (4) Hypertension Qualifiers: Hypertension type: essential hypertension Qualified Code(s): I10 - Essential (primary) hypertension Is this a current diagnosis for this admission?: Yes (5) Anxiety disorder Qualifiers: Anxiety disorder type: unspecified anxiety disorder Qualified Code(s ): F41.9 - Anxiety disorder, unspecified Is this a current diagnosis for this admission?: Yes (6) Sleep disorder breathing Is this a current diagnosis for this admission?: Yes - Notes Notes: Chest pain: Patient has marked chest wall tenderness. So far cardiac enzymes are negative. Stress test showed mainly a fixed defect. At this point feel that patient is stable with further evaluation as an outpatient. Patient may benefit from nonsteroidal anti-inflammatory medication. Shortness of breath: Exact etiology not clear but could be related to underlying COPD, anxiety disorder etc. Recommend SSRI inhibitors. COPD: Currently stable. Need to review current evaluation performed at [facility]. Hypertension: This is under satisfactory control. Anxiety disorder: Patient on clonazepam. Patient may benefit from SSRI inhibitor. Sleep disordered breathing: Patient has high probability of having underlying sleep apnea syndrome. Patient will benefit from a sleep study. This was discussed. Patient is willing to schedule this as an outpatient. - Time Time Spent: 30 to 50 Minutes - CODE STATUS was discussed, patient remains full code. Surrogate decision-maker unchanged. Multiple medical problems were addressed. More than 50% of the time spent coordinating care, discussing management plans with involved caregivers. Management plans discussed with involved personnels. Medical decision making was of moderate to high complexity , patient's has multiple comorbidities. Medications reviewed and adjusted accordingly: Yes
[2016-08-21] MEDS: ALBUTEROL SULFATE HFA (90 MCG/PUFF) 200 PUFF/8.5 GM MDI IH PRN (16:05)
--- NOTE | 2016-08-21 17:56 | PDOC DISCHARGE SUMMARY ---
General - Admit/Disc Date/PCP Admission Date/Primary Care Provider: 08/19/16 20:07 GILBERTO HARTLEY MD Discharge Date: 08/21/16 - Discharge Diagnosis (1) Chest pain Is this a current diagnosis for this admission?: Yes (2) Shortness of breath Is this a current diagnosis for this admission?: Yes (3) Type 2 diabetes mellitus Is this a current diagnosis for this admission?: Yes - Additional Information Discharge Diet: Diabetic Discharge Activity: Activity As Tolerated Home Medications: Amlodipine/Valsartan/Hcthiazid [Exforge Hct 10-320-25 mg Tab] 1 tab PO DAILY 07/31 Calcium Carbonate/Vitamin D3 [Calcium 500-Vit D3 200 Caplet] 1 tab PO BID Clonazepam [Klonopin] 0.5 mg PO DAILYP PRN 08/19/16 Clopidogrel Bisulfate [Plavix 75 mg Tablet] 75 mg PO DAILY 08/19/16 Folic Acid [Folvite 1 mg Tablet] 1 mg PO DAILY 08/19/16 Linagliptin [Tradjenta] 5 mg PO DAILY 08/19/16 Memantine HCl/Donepezil HCl [Namzaric 14 mg-10 mg Capsule] 1 cap PO DAILY Pantoprazole Sodium [Protonix] 40 mg PO DAILY 08/19/16 Paroxetine HCl [Paxil] 20 mg PO DAILY 08/19/16 Rosuvastatin Calcium [Crestor 5 mg Tablet] 5 mg PO QHS 08/19/16 Zolpidem Tartrate [Ambien 5 mg Tablet] 5 mg PO QHS 08/19/16 Albuterol Sulfate [Proair HFA] 1 puff IH Q4 PRN #2 08/21/16 History of Present Illness History of Present Illness: SALINA BALES is a 75 year old female, she came to the emergency room because of shortness of breath and chest pain. She has shortness of breath for the last many months, she said the symptom started after she had upper respiratory symptoms that was felt to be due to viral back in the winter season. She was seen at [facility] for evaluation of the symptoms, she has had pulmonary function test including spirometry, lung volume and DLCO. I Reviewed records from the [facility] she apparently had pharmacological spect myocardial perfusion study done on July 15, 2016, it demonstrated a medium-sized severity apical septa and mid anteroseptal defect with no improvement at rest consistent with nontransmural infarct. Basically it seems that she had abnormal stress test, could that be the cause of her shortness of breath?. Echocardiogram was done on this admission, it demonstrated normal ejection fraction of left ventricle, the left ventricle was grossly normal size, there is borderline concentric left ventricular hypertrophy the right ventricular systolic function is normal. There is no mitral valve stenosis, there is no aortic valve stenosis , there is no aortic valve regurgitation Hospital Course Hospital Course: Patient was admitted because of chest pain shortness of breath, cardiac enzymes are negative for acute UT. 2D echo was done, it demonstrated normal ejection fraction of left ventricle. She was seen by Dr. Gottlieb cardiology. Patient shortness of breath started about 2-3 months ago after she had upper respiratory tract infection. She was evaluated at [facility] for shortness of breath she had a Cardiolite stress test in July 2016 and was negative for reversibility. Physical Exam Vital Signs: Temp Pulse Resp BP Pulse Ox 98.1 F 86 20 114/82 96 08/21/16 15:37 08/21/16 15:37 08/21/16 15:37 08/21/16 15:37 08/21/16 15:37 Intake & Output 08/20/16 08/21/16 08/22/16 06:59 06:59 06:59 Intake Total 300 540 455 Balance 300 540 455 Weight 66.6 kg General appearance: PRESENT: no acute distress, well-developed, well-nourished Head exam: PRESENT: atraumatic, normocephalic Eye exam: PRESENT: conjunctiva pink, EOMI, PERRLA Ear exam: PRESENT: normal external ear exam Mouth exam: PRESENT: moist, tongue midline Neck exam: PRESENT: full ROM Respiratory exam: PRESENT: clear to auscultation araceli Cardiovascular exam: PRESENT: RRR, +S1, +S2 Vascular exam: PRESENT: normal capillary refill GI/Abdominal exam: PRESENT: normal bowel sounds, soft Rectal exam: PRESENT: deferred Neurological exam: PRESENT: alert, awake, oriented to person, oriented to place , oriented to time, oriented to situation, CN II-XII grossly intact Psychiatric exam: PRESENT: appropriate affect, normal mood Skin exam: PRESENT: dry, intact, warm Results Laboratory Results: 08/20/16 09:08 08/20/16 09:08 08/20/16 08/20/16 08/20/16 00:17 00:17 09:08 Creatine Kinase 69 78 CK-MB (CK-2) 1.01 Troponin I 0.059 08/20/16 08/20/16 08/20/16 09:08 16:18 16:18 Creatine Kinase 106 CK-MB (CK-2) 1.20 1.32 Troponin I 0.056 0.047 Impressions: Chest X-Ray 08/19/16 11:32 IMPRESSION: NO SIGNIFICANT RADIOGRAPHIC FINDING IN THE CHEST.
[2016-08-21] MEDS: ZOLPIDEM TARTRATE 5 MG TABLET PO SCH (21:46)
[2016-08-21] MEDS: ATORVASTATIN CALCIUM 10 MG TABLET PO SCH (21:46)
[2016-08-22] MEDS: LANSOPRAZOLE 30 MG TAB.RAP.DR PO SCH (09:16)
[2016-08-22] MEDS: CALCIUM CARBONATE 250 MG/VITAMIN D3 125 UNIT TABLET PO SCH (09:16)
[2016-08-22] MEDS: VALSARTAN 160 MG TABLET PO SCH (09:16)
[2016-08-22] MEDS: AMLODIPINE BESYLATE 10 MG TABLET PO SCH (09:17)
[2016-08-22] MEDS: CLOPIDOGREL BISULFATE 75 MG TABLET PO SCH (09:17)
[2016-08-22] MEDS: FOLIC ACID 1 MG TABLET PO SCH (09:17)
[2016-08-22] MEDS: PAROXETINE HCL 20 MG TABLET PO SCH (09:17)
[2016-08-22] MEDS: SITAGLIPTIN PHOSPHATE 50 MG TABLET PO SCH (09:17)
[2016-08-22] MEDS: HYDROCHLOROTHIAZIDE 25 MG TABLET PO SCH (09:17)
[2016-08-22 12:26] VITALS: BP 137/56
--- NOTE | 2016-08-23 12:46 | PDOC PROGRESS REPORT ---
Subjective Progress Note for:: 08/22/16 Subjective:: Patient seems to be doing better with gradual improvement. Patient still has some chest pain but this is much improved. Patient denying any PND, orthopnea. Patient denied any sustained palpitations, dizziness, syncope, near syncope. Patient denying any fever chills. Patient denying any other significant discomfort. Patient is maintaining sinus rhythm. Review of systems: Rest review of systems negative. Medications: Medications have been reviewed. Physical Exam Vital Signs: Temp Pulse Resp BP Pulse Ox 98.0 F 68 15 137/65 H 98 08/22/16 07:46 08/22/16 07:46 08/22/16 07:46 08/22/16 07:46 08/22/16 07:46 Intake & Output 08/21/16 08/22/16 08/23/16 06:59 06:59 06:59 Intake Total 540 965 Balance 540 965 Exam: GENERAL: well-nourished and in no acute distress. Alert and oriented x3 HEAD: Atraumatic, normocephalic. EYES: Pupils equal round and reactive to light, extraocular movements intact, sclera anicteric, conjunctiva are normal. ENT: TMs normal, nares patent, oropharynx clear without exudates. Moist mucous membranes. No oral ulcerations or bleeding gums noted NECK: supple without lymphadenopathy. Trachea is central. No cervical or axillary lymphadenopathy noted. Carotids are 2+, JVD WNL LUNGS: Respiration seems nonlabored, no significant accessory muscle action noted. Breath sounds clear to auscultation bilaterally and equal noted. No wheezes rales or rhonchi noted. No significant dullness noted on percussion. CHEST: Palpation of the chest wall shows significant chest wall tenderness. No other significant abnormalities noted. 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 ABDOMEN: Soft, no significant tenderness appreciated, normoactive bowel sounds. No guarding, no rebound. No rigidity noted . No masses appreciated. EXTREMITIES: Pedal pulses are 1-2+, no calf tenderness noted. No clubbing or cyanosis.trace to 1+ pedal edema noted NEUROLOGICAL: Focused neurological exam showed no significant neurologic deficit. Normal speech, no focal weakness appreciated. PSYCH: Normal mood, normal affect. Judgment and insight within normal limits. SKIN: No significant ecchymosis, rash, ulcerations or signs of pruritus noted. MUSCULOSKELETAL EXAM: No significant joint swelling noted. Results Laboratory Results: 08/20/16 09:08 08/20/16 09:08 08/20/16 08/20/16 08/20/16 00:17 00:17 09:08 Creatine Kinase 69 78 CK-MB (CK-2) 1.01 Troponin I 0.059 08/20/16 08/20/16 08/20/16 09:08 16:18 16:18 Creatine Kinase 106 CK-MB (CK-2) 1.20 1.32 Troponin I 0.056 0.047 Impressions: Chest X-Ray 08/19/16 11:32 IMPRESSION: NO SIGNIFICANT RADIOGRAPHIC FINDING IN THE CHEST. Assessment & Plan - Diagnosis (1) Chest pain Qualifiers: Chest pain type: unspecified Qualified Code(s): R07.9 - Chest pain, unspecified Is this a current diagnosis for this admission?: Yes (2) Shortness of breath Is this a current diagnosis for this admission?: Yes (3) COPD (chronic obstructive pulmonary disease) Qualifiers: COPD type: unspecified COPD Qualified Code(s): J44.9 - Chronic obstructive pulmonary disease, unspecified Is this a current diagnosis for this admission?: Yes (4) Hypertension Qualifiers: Hypertension type: essential hypertension Qualified Code(s): I10 - Essential (primary) hypertension Is this a current diagnosis for this admission?: Yes (5) Anxiety disorder Qualifiers: Anxiety disorder type: unspecified anxiety disorder Qualified Code(s ): F41.9 - Anxiety disorder, unspecified Is this a current diagnosis for this admission?: Yes (6) Sleep disorder breathing Is this a current diagnosis for this admission?: Yes - Notes Notes: Chest pain: Patient has marked chest wall tenderness. So far cardiac enzymes are negative. Stress test showed mainly a fixed defect. At this point feel that patient is stable with further evaluation as an outpatient. Patient may benefit from nonsteroidal anti-inflammatory medication. Shortness of breath: Exact etiology not clear but could be related to underlying COPD, anxiety disorder etc. Recommend SSRI inhibitors. Patient actually already on it. COPD: Currently stable. Need to review current evaluation performed at [facility]. Patient encouraged to follow-up with me in the office. Hypertension: This is under satisfactory control. Anxiety disorder: Patient on clonazepam. Patient may benefit from SSRI inhibitor. Patient actually already on it. Sleep disordered breathing: Patient has high probability of having underlying sleep apnea syndrome. Patient will benefit from a sleep study. This was discussed. Patient is willing to schedule this as an outpatient. Patient to be seen in the office for this.
== END 2016-08-22 13:11 | disposition home or self-care (01) ==
LOC: ER 11:26 → EH 18:01 → UNDOADMOB 18:01 → EH 20:07 → 5 20:25
PROVIDERS: ADMIT Internal Medicine; ATTEND Internal Medicine
PROC: 3E0F7GC Introduction of Other Therapeutic Substance into Respiratory Tract, Via Natural or Artificial Opening (ICD-10-PCS; principal; 2016-08-19)
DX: R07.9 Chest pain, unspecified (principal); R06.02 Shortness of breath; E11.9 Type 2 diabetes mellitus without complications; J44.9 Chronic obstructive pulmonary disease, unspecified; K21.9 Gastro-esophageal reflux disease without esophagitis; I10 Essential (primary) hypertension; F41.9 Anxiety disorder, unspecified; G47.30 Sleep apnea, unspecified; F03.90 Unspecified dementia, unspecified severity, without behavioral disturbance, psychotic disturbance, mood disturbance, and anxiety; R61 Generalized hyperhidrosis; G47.00 Insomnia, unspecified; Z79.899 Other long term (current) drug therapy; Z79.02 Long term (current) use of antithrombotics/antiplatelets; Z79.84 Long term (current) use of oral hypoglycemic drugs; Z86.73 Personal history of transient ischemic attack (TIA), and cerebral infarction without residual deficits; Z87.11 Personal history of peptic ulcer disease; Z98.61 Coronary angioplasty status
CPT/HCPCS: 93005; 94640; 99285; 96374; 36415 ×2; 87086; 82553 ×2; 82962 ×4; 82550 ×2; 85025 ×2; 80048; 80053; 81001; 84484 ×2; 82803; 83880; 93306; 71020; 93010; G0378 ×5; A9270 ×33; J2930; J3490; J1815

== ENCOUNTER 2016-09-19 15:30 | Emergency (ER) | payer MEDICARE, OTHER ==
--- NOTE | 2016-09-19 16:12 | ER Document Report ---
ED General - General Chief Complaint: General Weakness Stated Complaint: WEAKNESS Time Seen by Provider: 09/19/16 15:37 Notes: The patient is a 75-year-old female, PMHx dementia, HTN, GERD, DM2, presents from Dr. Botello's office by EMS after she had 5 weeks of generalized weakness. She walked into his office, but said that she did not feel like she could walk out of the office. Patient is evasive and will not directly answer questions. Pt was directly admitted last month for similar symptoms. Denies chest pains, blurry vision, headache, numbness, tingling, fevers or urinary symptoms. TRAVEL OUTSIDE OF THE [place] IN LAST 30 DAYS: No - Related Data Allergies/Adverse Reactions: Penicillins Allergy (Unknown, Verified 09/19/16 17:14) Past Medical History - General Information source: Patient - Social History Smoking Status: Unknown if Ever Smoked Family History: Reviewed & Not Pertinent - Past Medical History Cardiac Medical History: Reports: Hx Hypertension Pulmonary Medical History: Reports: Hx COPD Denies: Hx Tuberculosis Neurological Medical History: Reports: Hx Cerebrovascular Accident - 2007 Endocrine Medical History: Reports: Hx Diabetes Mellitus Type 2 GI Medical History: Reports: Hx Gastroesophageal Reflux Disease, Hx Ulcer - stomach Psychiatric Medical History: Reports: Hx Dementia Denies: Hx Depression - mood disorder Past Surgical History: Reports: Hx Cardiac Catheterization - At least 3 by patient's record none showing significant disease, Hx Cardiac Surgery - 2 or 3 angioplasty can not remember, Hx Tonsillectomy - T&A - Immunizations Immunizations up to date: Yes Hx Diphtheria, Pertussis, Tetanus Vaccination: Yes Hx Pneumococcal Vaccination: 03/17/09 Review of Systems - Review of Systems Notes: REVIEW OF SYSTEMS: CONSTITUTIONAL: -fevers, -chills EENT: -eye pain, -difficulty swallowing, -nasal congestion CARDIOVASCULAR:-chest pain, -syncope. RESPIRATORY: -cough, -SOB GASTROINTESTINAL: -abdominal pain, - nausea, -vomiting, -diarrhea GENITOURINARY: -dysuria, -hematuria MUSCULOSKELETAL: -back pain, -neck pain SKIN: -rash or skin lesions. HEMATOLOGIC: -easy bruising or bleeding. LYMPHATIC: -swollen, enlarged glands. NEUROLOGICAL: +generalized weakness, -altered mental status or loss of consciousness, -headache, -neurologic symptoms PSYCHIATRIC: -anxiety, -depression. ALL OTHER SYSTEMS REVIEWED AND NEGATIVE. Physical Exam - Vital signs Vitals: Resp Pulse Ox 15 99 09/19/16 16:47 09/19/16 16:47 - Notes Notes: PHYSICAL EXAMINATION: GENERAL: Well-appearing, well-nourished and in no acute distress. HEAD: Atraumatic, normocephalic. EYES: Pupils equal round and reactive to light, extraocular movements intact, sclera anicteric, conjunctiva are normal. ENT: nares patent, oropharynx clear without exudates. Moist mucous membranes. NECK: Normal range of motion, supple without lymphadenopathy LUNGS: Breath sounds clear to auscultation bilaterally and equal. No wheezes rales or rhonchi. HEART: Regular rate and rhythm without murmurs ABDOMEN: Soft, nontender, normoactive bowel sounds. No guarding, no rebound. No masses appreciated. EXTREMITIES: Normal range of motion, no pitting or edema. No cyanosis. NEUROLOGICAL: Cranial nerves grossly intact. Normal speech, normal gait. Normal sensory and motor exams. PSYCH: Normal mood, normal affect. SKIN: Warm, Dry, normal turgor, no rashes or lesions noted. Course - Re-evaluation Re-evalutation: Patient seen ambulating around the emergency room with a steady gait. MRI does not show any posterior fossa involvement and labs are unremarkable. Will discharge patient home with follow-up with her primary care physician. - Vital Signs Vital signs: Temp Pulse Resp BP Pulse Ox 97.8 F 18 154/70 H 95 09/19/16 19:19 09/19/16 19:19 09/19/16 21:00 09/19/16 21:01 - Laboratory Result Diagrams: 09/19/16 16:45 09/19/16 16:45 Laboratory results interpreted by me: 09/19/16 09/19/16 16:45 16:45 MCHC 31.8 L RDW 14.4 H Est GFR ( Amer) 51 L Est GFR (Non-Af Amer) 42 L AST 38 H Creatine Kinase 195 H - Diagnostic Test Radiology reviewed: Image reviewed, Reports reviewed Radiology results interpreted by me: MRI Head: NAD Discharge - Discharge Clinical Impression: Other malaise and fatigue Condition: Stable Disposition: HOME, SELF-CARE Additional Instructions: NORMAL EXAM AND WORKUP: At this time, your examination and workup show no significant abnormality. No significant abnormal physical findings were noted. All laboratory, EKG, and imaging (x-ray, CT scans, ultrasound) studies that were ordered show no significant abnormality. Although your examination and all studies that were ordered showed no significant abnormal finding, there are no examinations and no studies that are 100% accurate. There is always the possibility that some abnormality could exist and not be detected with physical examination or within the limits and capabilities of laboratory and other studies. You should return or follow up as you were instructed on your visit today for further evaluation if your symptoms do not resolve. Referrals: GILBERTO HARTLEY MD [Primary Care Provider] - Follow up as needed
[2016-09-19 16:57] LABS: ABSOLUTE BASOPHILS # (AUTO) 0.1 10^3/uL (0.0-0.2); ABSOLUTE EOSINOPHILS # (AUTO) 0.2 10^3/uL (0.0-0.6); ABSOLUTE LYMPHOCYTES (AUTO) 3.1 10^3/uL (0.5-4.7); ABSOLUTE MONOCYTES (AUTO) 0.9 10^3/uL (0.1-1.4); ABSOLUTE NEUT (AUTO) 5.9 10^3/uL (1.7-8.2); BASOPHILS % (AUTO) 1.1 % (0-2); EOSINOPHILS % (AUTO) 2.1 % (0-6); HEMATOCRIT 37.5 % (36.0-47.0); HGB HCT DIFFERENCE -1.5; LYMPHOCYTES % (AUTO) 30.4 % (13-45); MEAN CORPUSCULAR HGB CONC 31.8 g/dL (32.0-36.0); MEAN CORPUSCULAR VOLUME 97 fl (80-97); RED BLOOD COUNT 3.86 10^6/uL (3.72-5.28); RED CELL DISTRIBUTION WIDTH 14.4 % (11.5-14.0); SEGMENTED NEUTROPHILS % (AUTO) 57.4 % (42-78); WHITE BLOOD COUNT 10.3 10^3/uL (4.0-10.5)
[2016-09-19 17:19] LABS: ALANINE AMINOTRANSFERASE 36 U/L (9-52); ALBUMIN 4.6 g/dL (3.5-5.0); ALKALINE PHOSPHATASE 79 U/L (38-126); ANION GAP 12 (5-19); ASPARTATE AMINO TRANSFERASE 38 U/L (14-36); BILIRUBIN,DIRECT 0.2 mg/dL (0.0-0.4); BILIRUBIN,TOTAL 0.7 mg/dL (0.2-1.3); BLOOD UREA NITROGEN 20 mg/dL (7-20); CARBON DIOXIDE 27 mmol/L (22-30); CHLORIDE 103 mmol/L (98-107); CREATINE KINASE 195 U/L (30-135); CREATININE RESULT 1.24 mg/dL (0.52-1.25); GLUCOSE 79 mg/dL (75-110); LIPASE 233.7 U/L (23-300); POTASSIUM 3.7 mmol/L (3.6-5.0); SODIUM 141.8 mmol/L (137-145); TOTAL PROTEIN 7.7 g/dL (6.3-8.2)
[2016-09-19 17:26] LABS: ALCOHOL < 10 mg/dL (NONE DETECTED)
--- NOTE | 2016-09-19 17:33 | RADIOLOGY REPORT (SQ) ---
EXAM DESCRIPTION: CHEST PA/LAT COMPLETED DATE/TIME: 09/19/2016 5:11 pm REASON FOR STUDY: SOB COMPARISON: 08/19/2016 EXAM PARAMETERS: NUMBER OF VIEWS: two views TECHNIQUE: Digital Frontal and Lateral radiographic views of the chest acquired. RADIATION DOSE: NA LIMITATIONS: none FINDINGS: LUNGS AND PLEURA: No opacities, masses or pneumothorax. No pleural effusion. MEDIASTINUM AND HILAR STRUCTURES: No masses or contour abnormalities. HEART AND VASCULAR STRUCTURES: Heart normal size. No evidence for failure. BONES: No acute findings. HARDWARE: None in the chest. OTHER: No other significant finding. IMPRESSION: NO ACUTE CARDIOPULMONARY PROCESS. NO SIGNIFICANT CHANGE FROM PRIOR STUDY. TECHNICAL DOCUMENTATION: JOB ID: [id number] [employer]- All Rights Reserved
[2016-09-19 17:34] LABS: APPEARANCE,URINE CLEAR; BILIRUBIN,URINE NEGATIVE (NEGATIVE); GLUCOSE, URINE NEGATIVE (NEGATIVE); KETONES,URINE NEGATIVE (NEGATIVE); LEUKOCYTE ESTERASE,URINE NEGATIVE (NEGATIVE); NITRITE,URINE NEGATIVE (NEGATIVE); PROTEIN,URINE NEGATIVE (NEGATIVE); URINE SPECIFIC GRAVITY 1.005; UROBILINOGEN,URINE NEGATIVE mg/dL (<2.0)
--- NOTE | 2016-09-19 18:04 | EKG REPORT ---
SEVERITY:- ABNORMAL ECG - SINUS RHYTHM BORDERLINE LEFT AXIS DEVIATION ABNRM R PROG, CONSIDER ASMI OR LEAD PLACEMENT BORDERLINE T ABNORMALITIES, DIFFUSE LEADS PROLONGED QT INTERVAL : Confirmed by: Javier Pruitt MD 19-Sep-2016 18:04:01
--- NOTE | 2016-09-19 18:59 | RADIOLOGY REPORT (SQ) ---
EXAM DESCRIPTION: CT HEAD WITHOUT COMPLETED DATE/TIME: 09/19/2016 6:45 pm REASON FOR STUDY: ataxia COMPARISON: CT from 11/20/2014 and MRI from 08/01/2016 TECHNIQUE: Axial images acquired through the brain without intravenous contrast. Images reviewed wi th bone, brain and subdural windows. Images stored on PACS. All CT scanners at this facility use dose modulation, iterative reconstruction, and/or weight based d osing when appropriate to reduce radiation dose to as low as reasonably achievable (ALARA). [facility]: Dose Right [facility]: CareDose [facility]: Dose Right [facility]: Teradose 4D [facility]: Echo it RADIATION DOSE: Up-to-date CT equipment and radiation dose reduction techniques were employed. CTDIv ol: 64.6 mGy. DLP: 1034 mGy-cm. mGy. LIMITATIONS: None. FINDINGS: VENTRICLES: Prominent. CEREBRUM: No masses. No hemorrhage. No midline shift. Areas of low density in the white matter mos t likely due to chronic micro-vascular ischemic change. No evidence for acute infarction. CEREBELLUM: No masses. No hemorrhage. No alteration of density. No evidence for acute infarction. EXTRAAXIAL SPACES: Mild age-related involutional change. No fluid collections. No masses. ORBITS AND GLOBE: No intra- or extraconal masses. Normal contour of globe without masses. CALVARIUM: No fracture. PARANASAL SINUSES: No fluid or mucosal thickening. SOFT TISSUES: No mass or hematoma. OTHER: No other significant finding. IMPRESSION: NO ACUTE INTRACRANIAL PROCESS. NO SIGNIFICANT CHANGE FROM PRIOR IMAGING. TECHNICAL DOCUMENTATION: JOB ID: [id number] Quality ID # [id number]: Final reports with documentation of one or more dose reduction techniques (e.g., Au tomated exposure control, adjustment of the mA and/or kV according to patient size, use of iterative reconstruction technique) 2010 [employer]- All Rights Reserved
--- NOTE | 2016-09-19 22:03 | RADIOLOGY REPORT (SQ) ---
EXAM DESCRIPTION: MRI HEAD WITHOUT COMPLETED DATE/TIME: 09/19/2016 8:51 pm REASON FOR STUDY: ataxia COMPARISON: CT brain done earlier the same day, MRI brain dated 08/01/2016 TECHNIQUE: Multiplanar imaging includes non-contrasted T1, T2, FLAIR, and Diffusion with ADC map seq uences. Images stored on PACS. LIMITATIONS: None. FINDINGS: ANATOMY: No anomalies. Normal vascular flow voids. Pituitary fossa normal. CSF SPACES: Normal in size and contour. No hemorrhage. CEREBRUM: A few high-signal intensity lesions scattered throughout the white matter on FLAIR imaging with distribution suggesting chronic micro-vascular ischemic change. Sulci and gyri normal in size a nd contour. No evidence of hemorrhage, mass or extraaxial fluid collection. POSTERIOR FOSSA: No signal alteration. No hemorrhage. No edema, masses or mass effect. Internal ministerio tory canals, cerebello-pontine angles, mastoids normal. DIFFUSION: Negative for acute or sub-acute infarction. ORBITS: No masses. Globes normal. PARANASAL SINUSES: No fluid levels. Mucosa normal. OTHER: No other significant finding. IMPRESSION: MINIMAL MICROVASCULAR ISCHEMIC CHANGE. OTHERWISE NORMAL STUDY. TECHNICAL DOCUMENTATION: JOB ID: [id number] [employer]- All Rights Reserved
[2016-09-19 22:47] VITALS: BP 132/65
== END 2016-09-19 22:30 | disposition home or self-care (01) ==
LOC: ER 15:30
DX: R53.83 Other fatigue (principal); R53.81 Other malaise; R53.1 Weakness; I10 Essential (primary) hypertension; E11.9 Type 2 diabetes mellitus without complications; K21.9 Gastro-esophageal reflux disease without esophagitis
CPT/HCPCS: 36415; 70450; 70551; 71020; 80053; 80307; 81001; 82550; 83605; 83690; 84484; 85025; 87086; 93005; 93010; 99285

== ENCOUNTER → 2016-09-24 | Outpatient (CLI) | payer MEDICARE, OTHER ==
--- NOTE | 2016-09-24 09:34 | ST Modified Barium Swallow ---
Recommendation - Recommendations Recommendations: 1) DIET: continue current diet. 2) STRATEGIES: alternate solids and liquids to clear trace-mild residuals of solids at the level of the valleculae. 3) Consider ENT referral as pt reports voice changes after reported possible asbestos exposure. Pt observed to have intermittent aphonic speak, vocal stoppages, breathy vocal quality, and reduced pitch range. Consider speech therapy outpatient referral after ENT consult. SUMMARY: Pt presents with a mild oropharyngeal dysphagia characterized by mildly reduced base of tongue and mildly reduced pressure generation resulting in trace-mild residuals of solids at the level of the valleculae. Residuals observed to clear with liquid wash. 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 - ICD-10 Tx Diagnosis Coding (1) Dysphagia, oropharyngeal phase ICD-10 Code(s): R13.12 - DYSPHAGIA, OROPHARYNGEAL PHASE ST Modified Barium Swallow - General Date: 09/24/16 Referring Physician: Dr Jim Risks/Precautions: Falls - pt noted to have unsteady gait, occasionally lossing balance with standing. Date of Onset: 07/25/16 Reason for Referral: other disease of vocal cords - History History obtained from: Patient -: Medical - Pt denies coughing or choking with PO intake, denies globus sensation, denies history of bronchitis or PNA. Pt reports shortness of breath and coughing with taking inhaler. Pt states she feels issues initially started last winter and continued to progressively get worse. Pt states had "a virus and the flu" for "10 weeks". Pt reports issues became worse approximately 2 months ago. Pt reports eating regular solids and thin liquids. PMHx: pt reports possible exposure to asbestos and states cannot change her pitch. Pt also reports history of "x3 mini strokes". Medications: exforge, hydrochlorothiazide, pravachol, dexilant, paxil, folic acid, aricept, ambien, restasis, mineral oil, plavix, activella, klonopin, vistril, refresh. Allergies: penicillin, mobic - Functional Status Prior Functional Status: INDEPENDENT: communication, feeding, leisure/play Current Functional Limitations: communication, feeding, leisure/play - Subjective Patient/caregiver goal(s): safe swallow Cognitive-Linguistic Function: WNL Speech Intelligibility: Reduced intelligibility - breathy voicing, voice stoppages, occasional aphonic speech, reduced audibility Current Nutritional Means: PO Current PO diet: Regular Current symptoms: other - pt reports shortness of breath Pain: 0/5 - Objective Assessment: Upright, Left Lateral - Food Trials Used Food trials used: Thin liquids, Pureed, Regular The patient: Was Able to Self Feed - Oral-Motor Skills Dentition: Partial Velo-pharyngeal function: Unremarkable Laryngeal Function: Volitional Cough, Volitional Swallow - Assessment Oral prep: Normal Labial closure: Adequate Leakage: None Mastication: Adequate Lingual Movement: Normal Oral stage: Normal for this Procedure - Pharyngeal Stage Initiation of Pharyngeal Stage Reflex: Normal Decreased laryngeal elevation: No Reduced Velopharyngeal Closure: no Reduced pressure generation: Yes - mild reduced tongue-based retraction: Yes - milld Pre-swallow pooling in valleculae: None Pre-Swallow pooling in pyriforms: None Reduced Thyro-Hyoid approximation: No Reduced epiglottic excursion: No Reduced pharyngeal peristalsis/contraction: No Post-swallow residulas vallecular: Mild - trace to mild on solids Post-Swallow residuals in pyriforms: None Reduced Cricopharyngeal opening: No - Fall Risk Assessment Medications/Conditions that increase fall risks include: Antidepressants, sedatives, anti-arrhythmic, diuretic, benzodiazipenes, neuroleptics. BP regulation problems, cardiac problems, balance or gait deficits, neurological problems. Is patient considered at risk for falls: yes - pt observed to lose balance x3 when standing. Fall Risk Actions Taken: Pt physician notified - Behavioral Observations During evaluation process patient: was pleasant, was cooperative, able to answer questions, provided medical history - Treatment / Educational Needs: Treatment/Education Needs: Treatment consisted of patient education on the role of the Speech Pathologist. Patient's plan of care and golas were communicated as well as scheduling and attendance policies. Recommendations for initial home program were shared. Patient demonstrated understanding and verbalized agreement. - Impression/Summary Laryngeal Penetration: No Tracheal Aspiration: no Patient presents with: Oral-Pharyngeal dysph. - mild Risk of Aspiration: Mild - Recommendations NPO: no Solid diet recommendations: Regular Liquid Diet Modification: Thin Pt/Family education and followup with MD: Yes Recommended techniques: Fully Upright During Meal, Alternate Bites/Sips Supervision: Independent Information, Precautions and Recommendations: Patient (Verbal) - Time Total Time: 30 - Plan of Care Strategies to optimize patient understanding include:: ongoing assessment of educational needs, implementation of educational strategies, and re-education. - - -: Thank you for the opportunity to work with this patient and his/her family. Should you have any questions about this patient's plan or progress, I can be reached at [phone]. Charge G Code? - - -: Yes ST [facility] Impairment Category - Rationale Based On Rationale Based On: Clin Find., Obj Measures - Swallowing Current G8996: CI 1-19% Impaired Goal G8997: CI 1-19% Impaired Discharge G8998: CI 1-19% Impaired
--- NOTE | 2016-09-24 11:00 | RADIOLOGY REPORT (SQ) ---
EXAM DESCRIPTION: COOKIE SWALLOW COMPLETED DATE/TIME: 09/24/2016 9:25 am REASON FOR STUDY: OTHER DISEASES OF VOCAL CORDS (J38.3), R05 COUGH J38.3 OTHER DISEASES OF VOCAL C ORDS FOOD IN PHARYNX CAUSING OTHER INJURY, SEQUELA T1 7.228 S COMPARISON: None. TECHNIQUE: Videofluoroscopic swallowing examination was performed in conjunction with speech patholo gy. Videofluoroscopic imaging was obtained and reviewed and these are the findings: RADIATION DOSE: Total fluoroscopy time: 1 minutes 31 seconds 1 fluoroscopy images saved to PACS. LIMITATIONS: None FINDINGS: The patient was brought into the fluoro room and placed upright on a modified barium swall ow chair. The patient was then given multiple consistencies mixed with barium to swallow under live fluoroscopic video guidance. According to the Speech Pathologist there was no laryngeal penetration and no tracheal aspiration. Normal oral and pharyngeal transit time was observed. No significant po st swallow residual was seen. Please see speech pathology report for further details and recommendat ions. IMPRESSION: NO EVIDENCE OF LARYNGEAL PENETRATION OR TRACHEAL ASPIRATIONPLEASE SEE SPEECH PATHOLOGIST REPORT FOR OTHER FINDINGS AND RECOMMENDATIONS. COMMENT: Quality ID [id number]: Final reports for procedures using fluoroscopy that document radiation exp osure indices, or exposure time and number of fluorographic images (if radiation exposure indices are not available) TECHNICAL DOCUMENTATION: JOB ID: [id number] [employer]- All Rights Reserved
== END ==
LOC: RAD 07:58
PROVIDERS: ATTEND Internal Medicine
DX: J38.3 Other diseases of vocal cords (principal)
CPT/HCPCS: 74230; 92611; G8996; G8997; G8998

== ENCOUNTER 2019-02-03 15:39 | Emergency (ER) | payer MEDICARE, OTHER ==
[2019-02-03 16:11] LABS: ABSOLUTE EOSINOPHILS # (AUTO) 0.1 10^3/uL (0.0-0.6); ABSOLUTE LYMPHOCYTES (AUTO) 2.9 10^3/uL (0.5-4.7); ABSOLUTE MONOCYTES (AUTO) 0.6 10^3/uL (0.1-1.4); ABSOLUTE NEUT (AUTO) 4.6 10^3/uL (1.7-8.2); BASOPHILS % (AUTO) 0.5 % (0-2); EOSINOPHILS % (AUTO) 1.8 % (0-6); HEMATOCRIT 37.4 % (36.0-47.0); HEMOGLOBIN 12.9 g/dL (12.0-15.5); LYMPHOCYTES % (AUTO) 34.8 % (13-45); MEAN CORPUSCULAR HEMOGLOBIN 33.8 pg (27.0-33.4); MEAN CORPUSCULAR HGB CONC 34.5 g/dL (32.0-36.0); MEAN CORPUSCULAR VOLUME 98 fl (80-97); MONOCYTES % (AUTO) 7.2 % (3-13); PLATELET COUNT 274 10^3/uL (150-450); RED BLOOD COUNT 3.82 10^6/uL (3.72-5.28); RED CELL DISTRIBUTION WIDTH 14.1 % (11.5-14.0); SEGMENTED NEUTROPHILS % (AUTO) 55.7 % (42-78); TOTAL CELLS COUNTED % (AUTO) 100 %; WHITE BLOOD COUNT 8.3 10^3/uL (4.0-10.5)
[2019-02-03 16:33] LABS: ALBUMIN 4.2 g/dL (3.5-5.0); ALKALINE PHOSPHATASE 63 U/L (38-126); ANION GAP 9 (5-19); ASPARTATE AMINO TRANSFERASE 27 U/L (14-36); BILIRUBIN,TOTAL 0.6 mg/dL (0.2-1.3); BLOOD UREA NITROGEN 27 mg/dL (7-20); CALCIUM 9.6 mg/dL (8.4-10.2); CARBON DIOXIDE 27 mmol/L (22-30); CHLORIDE 106 mmol/L (98-107); CREATINE KINASE 67 U/L (30-135); GLUCOSE 110 mg/dL (75-110); POTASSIUM 3.7 mmol/L (3.6-5.0)
[2019-02-03 16:46] LABS: TROPONIN I < 0.012 ng/mL
[2019-02-03] MEDS ORDERED: NORMAL SALINE 1000 ML 2,000 ML IV ONE (17:11)
[2019-02-03 20:22] LABS: APPEARANCE,URINE CLEAR; BILIRUBIN,URINE NEGATIVE (NEGATIVE); COLOR,URINE YELLOW; GLUCOSE, URINE NEGATIVE (NEGATIVE); KETONES,URINE NEGATIVE (NEGATIVE); LEUKOCYTE ESTERASE,URINE SMALL (NEGATIVE); NITRITE,URINE NEGATIVE (NEGATIVE); PROTEIN,URINE NEGATIVE (NEGATIVE); URINE SPECIFIC GRAVITY 1.013; UROBILINOGEN,URINE NEGATIVE mg/dL (<2.0)
--- NOTE | 2019-02-03 20:24 | EKG REPORT ---
SEVERITY:- ABNORMAL ECG - SINUS BRADYCARDIA BORDERLINE LEFT AXIS DEVIATION CONSIDER ANTEROSEPTAL INFARCT NONSPECIFIC T ABNORMALITIES, DIFFUSE LEADS : Confirmed by: Javier Pruitt MD 03-Feb-2019 20:22:45
--- NOTE | 2019-02-03 20:57 | RADIOLOGY REPORT (SQ) ---
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 COMPARISON: None. TECHNIQUE: CT scan of the brain without IV contrast. This exam was performed according to our departmental dose-optimization program, which includes automated exposure control, adjustment of the mA and/or kV according to patient size and/or use of iterative reconstruction technique. FINDINGS: There are scattered areas of hypoattenuation within the periventricular white matter, which likely represent chronic microvascular ischemia. No evidence of acute infarction, intracranial hemorrhage, extra-axial fluid collection, or midline shift. No air-fluid levels are seen in the paranasal sinuses to suggest acute sinusitis. No depressed skull fracture. There is scalp swelling overlying the right posterior region. The lungs are clear without pleural effusions or pneumothorax. Normal heart size. No pulmonary vascular congestion is seen. The bony thorax is intact. IMPRESSION: 1. Right posterior scalp swelling without intracranial hemorrhage. 2. Senescent changes with chronic microvascular ischemia. 3. No acute cardiopulmonary disease.
--- NOTE | 2019-02-03 20:57 | RADIOLOGY REPORT (SQ) ---
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 COMPARISON: None. TECHNIQUE: CT scan of the brain without IV contrast. This exam was performed according to our departmental dose-optimization program, which includes automated exposure control, adjustment of the mA and/or kV according to patient size and/or use of iterative reconstruction technique. FINDINGS: There are scattered areas of hypoattenuation within the periventricular white matter, which likely represent chronic microvascular ischemia. No evidence of acute infarction, intracranial hemorrhage, extra-axial fluid collection, or midline shift. No air-fluid levels are seen in the paranasal sinuses to suggest acute sinusitis. No depressed skull fracture. There is scalp swelling overlying the right posterior region. The lungs are clear without pleural effusions or pneumothorax. Normal heart size. No pulmonary vascular congestion is seen. The bony thorax is intact. IMPRESSION: 1. Right posterior scalp swelling without intracranial hemorrhage. 2. Senescent changes with chronic microvascular ischemia. 3. No acute cardiopulmonary disease.
[2019-02-03] MEDS ORDERED: KETOROLAC TROMETHAMINE INJ/PF 30 MG/1 ML SDV IV ONE (21:05)
[2019-02-03] MEDS ORDERED: ACETAMINOPHEN 325 MG TABLET PO ONE (21:06)
--- NOTE | 2019-02-03 21:17 | ER Document Report ---
ED Dizziness/Weakness - General Chief Complaint: Syncope Stated Complaint: POSSIBLE SYNCOPE Time Seen by Provider: 02/03/19 17:01 Primary Care Provider: GILBERTO HARTLEY MD [Primary Care Provider] - Follow up as needed Notes: Ms. Boone is a 78 yo f w/ PMH tension, diabetes, anxiety, COPD resenting to the ED for syncopal episode. Patient states she was actually shopping when she had a syncopal episode. She landed on the right side of her body and endorsing a small lump to the right parietal region that is tender to palpation. She denies any presyncopal symptoms such as chest pain, shortness of breath, di zziness. She states that she only drank half a glass of water all day today when she took her pills this morning but because she was out and about doing things, she was unable to keep hydrated. She denies any complaints at this point in time with the exception of tenderness to palpation over the right parietal scalp. TRAVEL OUTSIDE OF THE [place] IN LAST 30 DAYS: No - Related Data Allergies/Adverse Reactions: Penicillins Allergy (Unknown, Verified 09/19/16 17:14) Home Medications: Metoprolol. Valsartan. Hydrochlorothiazide Past Medical History - Social History Smoking Status: Unknown if Ever Smoked Family History: Reviewed & Not Pertinent Patient has suicidal ideation: No Patient has homicidal ideation: No - Past Medical History Cardiac Medical History: Reports: Hx Hypertension Pulmonary Medical History: Reports: Hx COPD Denies: Hx Tuberculosis Neurological Medical History: Reports: Hx Cerebrovascular Accident - 2007 Endocrine Medical History: Reports: Hx Diabetes Mellitus Type 2 GI Medical History: Reports: Hx Gastroesophageal Reflux Disease, Hx Ulcer - stomach Psychiatric Medical History: Reports: Hx Dementia Denies: Hx Depression - mood disorder Past Surgical History: Reports: Hx Cardiac Catheterization - At least 3 by patient's record none showing significant disease, Hx Cardiac Surgery - 2 or 3 angioplasty can not remember, Hx Tonsillectomy - T&A - Immunizations Immunizations up to date: Yes Hx Diphtheria, Pertussis, Tetanus Vaccination: Yes Hx Pneumococcal Vaccination: 03/17/09 Review of Systems - Review of Systems Constitutional: See HPI EENT: No symptoms reported Cardiovascular: No symptoms reported Respiratory: No symptoms reported Gastrointestinal: No symptoms reported Genitourinary: No symptoms reported Female Genitourinary: No symptoms reported Musculoskeletal: No symptoms reported Skin: No symptoms reported Hematologic/Lymphatic: No symptoms reported Neurological/Psychological: No symptoms reported Physical Exam - Vital signs Vitals: Resp Pulse Ox 15 96 02/03/19 16:12 02/03/19 16:12 Interpretation: Hypertensive, Bradycardic - General General appearance: Appears well, Alert - HEENT Head: Normocephalic, Tenderness - 2 to 3 cm right parietal scalp hematoma with tenderness to palpation. No lacerations appreciated.. No: Rock's sign, Ecchymosis Eyes: Normal Conjunctiva: Normal Pupils: PERRL Mucous membranes: Dry - Respiratory Respiratory status: No respiratory distress Chest status: Nontender Breath sounds: Normal Chest palpation: Normal - Cardiovascular Rhythm: Regular Heart sounds: Normal auscultation Murmur: No - Abdominal Inspection: Normal Distension: No distension Bowel sounds: Normal Tenderness: Nontender Organomegaly: No organomegaly - Back Back: Normal, Nontender - Extremities General upper extremity: Normal inspection, Nontender, Normal color, Normal ROM, Normal temperature General lower extremity: Normal inspection, Nontender, Normal color, Normal ROM, Normal temperature, Normal weight bearing. No: Cynthia's sign - Neurological Neuro grossly intact: Yes Cognition: Normal Orientation: AAOx4 [place] Coma Scale Eye Opening: Spontaneous [place] Coma Scale Verbal: Oriented [place] Coma Scale Motor: Obeys Commands [place] Coma Scale Total: 15 Speech: Normal Motor strength normal: LUE, RUE, LLE, RLE Sensory: Normal - Psychological Associated symptoms: Normal affect, Normal mood - Skin Skin Temperature: Warm Skin Moisture: Dry Skin Color: Normal Course - Re-evaluation Re-evalutation: It is generally well-appearing and nontoxic. Initial vitals notable for mild bradycardia elevated blood pressure. EKG nonischemic. Differential diagnosis includes ACS, dehydration, electrolyte abnormality 02/03/19 21:09 Patient clinically appear dehydrated. Orders for 2 L of fluid. EKG nonischemic. First troponin negative. Patient has risk factors including diabetes and hypertension as well as age. She also has history of being ex- smoker. Will obtain 2 troponins. Otherwise normal neuro examination however CT had obtained as there is a small hematoma noted to the right parietal region. CT head unremarkable for acute intracranial process. There is evidence of microvascular ischemia as well as a right parietal scalp hematoma. Chest x-ray also within normal limits. Patient feels improved after IV fluids. Orthostatics performed without any significant difference in blood pressures, however orthostatics were performed after the patient had completed 1 L of fluids. 02/03/19 21:17 CBC within normal limits. CMP notable for increased BUN to creatinine ratio greater than 20 consistent with dehydration. Again patient received a total of 2 L of fluid. She ambulated in the ED without any lightheadedness. Pending repeat troponin. If negative, patient will be discharged. Recommended that the patient stay well-hydrated and drink plenty of fluids. Patient instructed to follow-up with her primary care doctor as needed. - Vital Signs Vital signs: Temp Pulse Resp BP Pulse Ox 55 L 15 150/57 H 96 02/03/19 20:53 02/03/19 20:38 02/03/19 20:53 02/03/19 20:38 - Laboratory Result Diagrams: 02/03/19 15:56 02/03/19 15:56 Laboratory results interpreted by me: 02/03/19 02/03/19 02/03/19 15:56 15:56 19:00 MCV 98 H MCH 33.8 H RDW 14.1 H BUN 27 H Creatinine 1.36 H Est GFR ( Amer) 46 L Est GFR (MDRD) Non-Af 38 L Ur Leukocyte Esterase SMALL H Urine Ascorbic Acid 40 H Discharge - Discharge Clinical Impression: Syncope, Dehydration, Scalp hematoma Condition: Good Disposition: HOME, SELF-CARE Instructions: Dehydration ([facility]), Syncopal Episode ([facility]) Additional Instructions: It is important that you drink at least eight 8 ounce glasses of water daily. Make sure that you stay well-hydrated so you do not have another episode of passing out. You can use Motrin or Tylenol as needed for the small lump on the side of your head. Follow-up with your primary care doctor as needed. If you develop chest pain, another passing out episodes, or any other concerning symptoms, please return to the ED for further evaluation. Referrals: GILBERTO HARTLEY MD [Primary Care Provider] - Follow up as needed
[2019-02-03 22:55] VITALS: BP 152/87
== END 2019-02-03 22:20 | disposition home or self-care (01) ==
LOC: ER 15:39
DX: R55 Syncope and collapse (principal); E86.0 Dehydration; S00.03XA Contusion of scalp, initial encounter; W19.XXXA Unspecified fall, initial encounter; Y93.89 Activity, other specified; Y92.512 Supermarket, store or market as the place of occurrence of the external cause; R00.1 Bradycardia, unspecified; E11.9 Type 2 diabetes mellitus without complications; J44.9 Chronic obstructive pulmonary disease, unspecified; I10 Essential (primary) hypertension; Z79.899 Other long term (current) drug therapy; Z88.0 Allergy status to penicillin; Z87.891 Personal history of nicotine dependence
CPT/HCPCS: 93005; 36415; 82553; 82550; 85025; 80053; 81001; 84484; 71046; 70450; 93010; A9270; J1885; J7030; 96361; 96374; 99285

== ENCOUNTER → 2020-04-10 | Outpatient (CLI) | payer MEDICARE, OTHER | LOC: WI 10:18 | PROVIDERS: ATTEND Internal Medicine | DX: Z12.31 Encounter for screening mammogram for malignant neoplasm of breast (principal) | CPT/HCPCS: 77063; 77067 ==